=== PATIENT | male | born 1985 | race Caucasian/White ===

== ENCOUNTER 2016-02-27 11:59 | Emergency (ER) | payer OTHER ==
[~2016-02-27 11:59] MED LIST: ALBU17IN2 INH; DEPA250T2 PO; no home meds
[2016-02-27] MEDS ORDERED: ALBUTEROL SULFATE 2.5 MG/0.5 ML INH NEB SOLN As Ordered ONE (13:37)
[2016-02-27] MEDS ORDERED: IPRATROPIUM 0.5MG/ALBUTEROL 2.5MG INH SOL UD 3ML (DUONEB)(J7620) As Ordered ONE (13:37)
[2016-02-27] MEDS ORDERED: predniSONE 20 MG TAB As Ordered ONE (13:38)
[2016-02-27] MEDS ORDERED: KETOROLAC 30 MG/ML VIAL (J1885) As Ordered ONE ×2 (13:38→13:39)
--- NOTE | 2016-02-27 13:49 | REP ---
Clinical: Fever with cough and shortness of breath. Technique: PA and lateral. Comparison: 02/12/2016. Findings: Mediastinum and cardiac silhouette are normal. Lung torres are essentially clear without focal consolidation, effusion, or pneumothorax. Trace atelectasis cannot be excluded. Skeletal structures intact. Impression: No focal consolidation. Cannot exclude trace perihilar atelectasis. Signed by David Horton MD 02/27/2016 01:41 P
--- NOTE | 2016-02-27 14:50 | EDDOCDS ---
Physician Documentation [facility] Name: Roberth Jerez Age: 30 yrs Sex: Male : 1985 Arrival Date: 02/27/2016 Time: 11:59 Bed 13 Private MD: Amy William PA-C Disposition: 02/26 14:37 Critical Care: Critical care not applicable. le Disposition: 02/27/16 14:31 Discharged to Home/Self Care. Impression: Jaw pain - right, Acute bronchitis, Tobacco abuse counseling, Tobacco use. - Condition is Stable. - Discharge Instructions: Acute Bronchitis, Pain Without a Known Cause, Smoking Cessation, Smoking Hazards, Smoking Cessation, Tips For Success. - Prescriptions for codeine- guaifenesin 7.5-225 mg/5 mL Oral liquid - take 5 milliliter by ORAL route every 4 hours as needed; 120 milliliter. Prednisone 20 mg Oral Tablet - take 3 tablet by ORAL route once daily for 5 days; 15 tablet. Combivent Respimat 20- 100 mcg/actuation Inhalation Mist - inhale 1 puff by INHALATION route 4 times per day not to exceed 6 puffs in 24hrs; 1 Inhaler. - Medication Reconciliation, Local Pharmacy Hours, Dental Referral List form. - Follow up: Amy William; When: Call to arrange an appointment; Reason: Recheck today's complaints, Continuance of care. - Problem is new. - Symptoms have improved. - Notes: Keep hydrated Use the dental referral list to see a dentist and have x-rays done to evaluate for decay causing jaw pain Return to the ED for facial swelling/redness, inability to open your mouth more than the width of 2 fingers, difficulty swallowing/drooling, difficulty breathing, fever or any other concerns Historical: - Allergies: no known allergies; - Home Meds: 1. albuterol sulfate 90 mcg/actuation Inhl HFAA 1 puff as needed - PMHx: Asthma; - PSHx: Hernia repair; - Social history: Smoking status: Patient uses tobacco products, light tobacco smoker. No barriers to communication noted, The patient speaks fluent Azeri. - Family history: Not pertinent. - : The pt / caregiver states he / she is not on anticoagulants. Home medication list is obtained from the patient. - Exposure Risk Screening:: None identified. Vital Signs: 12:01 BP 98 / 68; Pulse 78; Resp 22 S; Temp 98.4(O); Pulse Ox 93% on R/A; Weight 78.02 kg / dd6 172 lbs (M); Height 5 ft. 11 in. (180.34 cm) (R); 14:49 BP 107 / 62; Pulse 79; Resp 18; Temp 98.3; Pulse Ox 99% ; Pain 2/10; pml 12:01 Body Mass Index 23.99 (78.02 kg, 180.34 cm) dd6 MDM: 13:32 Albuterol 5 mg Nebulizer once ordered. le 13:32 Albuterol-Ipratropium 3 ml Inhalation once ordered. le 13:32 Call Respiratory ordered. le 13:32 predniSONE 60 mg PO once; administer with food or milk ordered. le 13:32 ketorolac 60 mg IM once ordered. le 13:32 Chest, 2 View (pa\E\lat) Ordered. EDMS 13:33 Call Respiratory complete. deg Administered Medications: 13:41 Drug: Albuterol 5 mg [albuterol sulfate 2.5 mg/0.5 mL solution for nebulization (1 mL)] js11 Route: Nebulizer; 13:41 Drug: Albuterol-Ipratropium 3 ml [ipratropium-albuterol 0.5 mg-3 mg(2.5 mg base)/3 mL js11 nebulization soln (3 mL)] Route: Inhalation; 13:45 Drug: predniSONE 60 mg [prednisone 20 mg tablet (3 tabs)] Route: PO; pml 13:45 Drug: ketorolac 60 mg [ketorolac 30 mg/mL (1 mL) injection solution (2 mL)] Route: IM; pml Site: left vastus lateralis; Signatures: Dispatcher [employer] EDMS Olesya Purdy, Head Baker Unit deg Karen Gannon RN RN mcp Westcott, Lisa, Tamara Manrique RN RN pml Sawyer, Jordan js11 MTDD
--- NOTE | 2016-02-27 14:50 | EDDOCDS ---
Nurse's Notes [facility] Name: Roberth Jerez Age: 30 yrs Sex: Male : 1985 Arrival Date: 02/27/2016 Time: 11:59 Bed 13 Private MD: Amy William PA-C Diagnosis: Jaw pain-right;Acute bronchitis;Tobacco abuse counseling;Tobacco use Presentation: 02/26 12:04 Presenting complaint: Patient states: Right jaw pain, chest congestion for last couple mcp of days. Adult Sepsis Screening: The patient does not have new or worsening altered mentation. Patient has a respiratory rate of greater than or equal to 22 (1 point). Systolic blood pressure is greater than 100. Patient has a qSOFA score of 0- Negative Sepsis Screen. Suicide/Homicide risk assessment- the patient denies having any suicidal and/or homicidal ideations and does not present with any other emotional, behavioral or mental health complaints. Status: Patient is not a student services counselor or dependent. Transition of care: patient was not received from another setting of care. 12:04 Acuity: MARY Level 4 [facility] 12:04 Method Of Arrival: Walkin/Carried/Asstd [facility] Triage Assessment: 12:05 General: Appears uncomfortable, Behavior is cooperative. Pain: Location: mouth Pain mcp currently is 8 out of 10 on a pain scale. HIV screening NA for this visit Offered previously. Neurological: No deficits noted. Respiratory: Onset: The symptoms/episode began/occurred couple of days ago, Airway is patent Respiratory effort is even, unlabored. Derm: Skin is pink, warm & dry. Historical: - Allergies: no known allergies; - Home Meds: 1. albuterol sulfate 90 mcg/actuation Inhl HFAA 1 puff as needed - PMHx: Asthma; - PSHx: Hernia repair; - Social history: Smoking status: Patient uses tobacco products, light tobacco smoker. No barriers to communication noted, The patient speaks fluent Indonesian. - Family history: Not pertinent. - : The pt / caregiver states he / she is not on anticoagulants. Home medication list is obtained from the patient. - Exposure Risk Screening:: None identified. Screenin:42 Screening information is obtained from the patient. Fall risk: No risks identified. pml Assistance ADL's: requires no assistance with activities of daily living. Abuse/DV Screen: The patient / caregiver reports he/she is: not in a situation that causes fear, pain or injury. Nutritional screening: No deficits noted. Advance Directives: There is no active DNR order. home support is adequate. Assessment: 13:42 General: Appears in no apparent distress, comfortable, Behavior is appropriate for age, pml cooperative. Pain: Location: mouth Pain currently is 8 out of 10 on a pain scale. Neurological: Level of Consciousness is awake, alert, Oriented to person, place, time. EENT: Reports nasal congestion. Cardiovascular: Capillary refill < 3 seconds. Respiratory: Airway is patent Respiratory effort is even, unlabored, Breath sounds are diminished Breath sounds with wheezes expiratory bilaterally. Derm: Skin is pink, warm & dry. 14:49 General: Appears in no apparent distress, comfortable, Behavior is appropriate for age, pml cooperative. Pain: Location: mouth Pain currently is 2 out of 10 on a pain scale. Neurological: Level of Consciousness is awake, alert, Oriented to person, place, time. Cardiovascular: Capillary refill < 3 seconds. Respiratory: Airway is patent Respiratory effort is even, unlabored. Derm: Skin is pink, warm & dry. Vital Signs: 12:01 BP 98 / 68; Pulse 78; Resp 22 S; Temp 98.4(O); Pulse Ox 93% on R/A; Weight 78.02 kg dd6 (M); Height 5 ft. 11 in. (180.34 cm) (R); 14:49 BP 107 / 62; Pulse 79; Resp 18; Temp 98.3; Pulse Ox 99% ; Pain 2/10; pml 12:01 Body Mass Index 23.99 (78.02 kg, 180.34 cm) dd6 Vitals: 12:01 Log In Time: February 27, 2016 at 12:00. dd6 ED Course: 12:00 Patient visited by [place] Amanda PCA. dd6 12:00 Patient moved to Waiting dd6 12:01 Amy William is Private Physician. dd6 12:03 Patient moved to Pre RCE dd6 12:05 Triage Initiated mcp 12:06 Patient visited by Karen Gannon RN. mcp 13:12 [facility] 13:12 Patient moved to 13 [facility] 13:22 Patient visited by Lexi Baires FNP. le 13:42 The patient / caregiver is instructed regarding the plan of care and ED course. Patient pml has correct armband on for positive identification. Bed in low position. Call light in reach. Side rails up X2. 13:42 No IV's were initiated during this patient's visit. No procedures done that require pml assistance. 13:43 Patient visited by Tamara Engel RN. pml 14:26 Chest, 2 View (pa\E\lat) Returned. EDMS 14:30 Amy William is Referral Physician. le Administered Medications: 13:41 Drug: Albuterol 5 mg [albuterol sulfate 2.5 mg/0.5 mL solution for nebulization (1 mL)] js11 Route: Nebulizer; 13:41 Drug: Albuterol-Ipratropium 3 ml [ipratropium-albuterol 0.5 mg-3 mg(2.5 mg base)/3 mL js11 nebulization soln (3 mL)] Route: Inhalation; 13:45 Drug: predniSONE 60 mg [prednisone 20 mg tablet (3 tabs)] Route: PO; pml 13:45 Drug: ketorolac 60 mg [ketorolac 30 mg/mL (1 mL) injection solution (2 mL)] Route: IM; pml Site: left vastus lateralis; RT: 13:41 Initial Med Neb Given as ordered Patient was instructed and evaluated on procedure js11 Patient tolerated procedure well without adverse effect. Oxygen is room air. Respiratory: Breath sounds are diminished bilaterally. Breath sounds with wheezes bilaterally. at expiration. 13:47 Respiratory: Breath sounds with wheezes bilaterally. at expiration Breath Sounds js11 increased. Order Results: Radiology Order: Chest, 2 View (pa\E\lat) Test: Chest, 2 View (pa\E\lat) REASON FOR EXAMINATION: fever;Cough;Shortness of Breath; Clinical: Fever with cough and shortness of breath.; ; Technique: PA and lateral.; ; Comparison: 02/12/2016.; ; Findings:; Mediastinum and cardiac silhouette are normal. Lung torres are essentially clear; without focal consolidation, effusion, or pneumothorax. Trace atelectasis cannot; be excluded. Skeletal structures intact.; ; Impression:; No focal consolidation. Cannot exclude trace perihilar atelectasis.; ; ; Signed by; David Horton MD 02/27/2016 01:41 P; Outcome: 14:31 Discharge ordered by Provider. naveed 14:49 Discharge Assessment: Patient awake, alert and oriented x 3. No cognitive and/or pml functional deficits noted. Patient verbalized understanding of disposition instructions. patient administered narcotics - no. The following High Risk Discharge criteria are identified: None. Discharged to home ambulatory. Condition: good Condition: stable. Discharge instructions given to patient, Instructed on discharge instructions, follow up and referral plans. medication usage, no driving heavy equipment, Demonstrated understanding of instructions, medications, Pt was receptive of discharge instructions/ teaching. Prescriptions given X 3. No special radiology studies were completed. Property sent home with patient. 14:50 Patient left the ED. pml Signatures: Dispatcher [employer] EDKaren Mack, RN RN Lexi Beltran, COASTAL AND ESTUARY SPECIALIST COASTAL AND ESTUARY SPECIALIST [place] Roberts, PLATE EMBOSSER PLATE EMBOSSER dd6 Tim Polanco js11 Tamara Engel RN RN pml MTDChalo
--- NOTE | 2016-02-29 15:51 | EDDOCDS ---
Physician Documentation [facility] Name: Roberth Jerez Age: 30 yrs Sex: Male : 1985 Arrival Date: 02/27/2016 Time: 11:59 Bed 13 Private MD: Amy William PA-C Disposition: 02/26 14:37 Critical Care: Critical care not applicable. le Disposition: 02/27/16 14:31 Discharged to Home/Self Care. Impression: Jaw pain - right, Acute bronchitis, Tobacco abuse counseling, Tobacco use. - Condition is Stable. - Discharge Instructions: Acute Bronchitis, Pain Without a Known Cause, Smoking Cessation, Smoking Hazards, Smoking Cessation, Tips For Success. - Prescriptions for codeine- guaifenesin 7.5-225 mg/5 mL Oral liquid - take 5 milliliter by ORAL route every 4 hours as needed; 120 milliliter. Prednisone 20 mg Oral Tablet - take 3 tablet by ORAL route once daily for 5 days; 15 tablet. Combivent Respimat 20- 100 mcg/actuation Inhalation Mist - inhale 1 puff by INHALATION route 4 times per day not to exceed 6 puffs in 24hrs; 1 Inhaler. - Medication Reconciliation, Local Pharmacy Hours, Dental Referral List form. - Follow up: Amy William; When: Call to arrange an appointment; Reason: Recheck today's complaints, Continuance of care. - Problem is new. - Symptoms have improved. - Notes: Keep hydrated Use the dental referral list to see a dentist and have x-rays done to evaluate for decay causing jaw pain Return to the ED for facial swelling/redness, inability to open your mouth more than the width of 2 fingers, difficulty swallowing/drooling, difficulty breathing, fever or any other concerns Historical: - Allergies: no known allergies; - Home Meds: 1. albuterol sulfate 90 mcg/actuation Inhl HFAA 1 puff as needed - PMHx: Asthma; - PSHx: Hernia repair; - Social history: Smoking status: Patient uses tobacco products, light tobacco smoker. No barriers to communication noted, The patient speaks fluent Setswana. - Family history: Not pertinent. - : The pt / caregiver states he / she is not on anticoagulants. Home medication list is obtained from the patient. - Exposure Risk Screening:: None identified. Vital Signs: 12:01 BP 98 / 68; Pulse 78; Resp 22 S; Temp 98.4(O); Pulse Ox 93% on R/A; Weight 78.02 kg / dd6 172 lbs (M); Height 5 ft. 11 in. (180.34 cm) (R); 14:49 BP 107 / 62; Pulse 79; Resp 18; Temp 98.3; Pulse Ox 99% ; Pain 2/10; pml 12:01 Body Mass Index 23.99 (78.02 kg, 180.34 cm) dd6 MDM: 13:32 Albuterol 5 mg Nebulizer once ordered. le 13:32 Albuterol-Ipratropium 3 ml Inhalation once ordered. le 13:32 Call Respiratory ordered. le 13:32 predniSONE 60 mg PO once; administer with food or milk ordered. le 13:32 ketorolac 60 mg IM once ordered. le 13:32 Chest, 2 View (pa\E\lat) Ordered. EDMS 13:33 Call Respiratory complete. deg 14:56 [facility] Payment Agreement was scanned into [employer] and attached to record. jp5 14:56 Financial registration complete. 5 22:39 T-Sheet-- Draft Copy was scanned into [employer] and attached to record. klr Administered Medications: 13:41 Drug: Albuterol 5 mg [albuterol sulfate 2.5 mg/0.5 mL solution for nebulization (1 mL)] js11 Route: Nebulizer; 13:41 Drug: Albuterol-Ipratropium 3 ml [ipratropium-albuterol 0.5 mg-3 mg(2.5 mg base)/3 mL js11 nebulization soln (3 mL)] Route: Inhalation; 13:45 Drug: predniSONE 60 mg [prednisone 20 mg tablet (3 tabs)] Route: PO; pml 13:45 Drug: ketorolac 60 mg [ketorolac 30 mg/mL (1 mL) injection solution (2 mL)] Route: IM; pml Site: left vastus lateralis; Signatures: Dispatcher MedHost EDMS Olesya Purdy, Software Computer Specialist Unit deg Karen Gannon RN RN mcp Westcott, Lisa, FNP FNP le Quay, Paulina, RN RN pml Price, Jennalee 5 Annika Baker Jordan js11 The chart was reviewed and I authenticate all verbal orders and agree with the evaluation and treatment provided.Attachments: 14:56 [facility] Payment Agreement jp5 22:39 T-Sheet-- Draft Copy fabricio Chart Complete MTDD
--- NOTE | 2016-02-29 15:51 | EDDOCDS ---
Nurse's Notes [facility] Name: Roberth Jerez Age: 30 yrs Sex: Male : 1985 Arrival Date: 02/27/2016 Time: 11:59 Bed 13 Private MD: Amy William PA-C Diagnosis: Jaw pain-right;Acute bronchitis;Tobacco abuse counseling;Tobacco use Presentation: 02/26 12:04 Presenting complaint: Patient states: Right jaw pain, chest congestion for last couple mcp of days. Adult Sepsis Screening: The patient does not have new or worsening altered mentation. Patient has a respiratory rate of greater than or equal to 22 (1 point). Systolic blood pressure is greater than 100. Patient has a qSOFA score of 0- Negative Sepsis Screen. Suicide/Homicide risk assessment- the patient denies having any suicidal and/or homicidal ideations and does not present with any other emotional, behavioral or mental health complaints. Status: Patient is not a enterprise services manager or dependent. Transition of care: patient was not received from another setting of care. 12:04 Acuity: MARY Level 4 [facility] 12:04 Method Of Arrival: Walkin/Carried/Asstd [facility] Triage Assessment: 12:05 General: Appears uncomfortable, Behavior is cooperative. Pain: Location: mouth Pain mcp currently is 8 out of 10 on a pain scale. HIV screening NA for this visit Offered previously. Neurological: No deficits noted. Respiratory: Onset: The symptoms/episode began/occurred couple of days ago, Airway is patent Respiratory effort is even, unlabored. Derm: Skin is pink, warm & dry. Historical: - Allergies: no known allergies; - Home Meds: 1. albuterol sulfate 90 mcg/actuation Inhl HFAA 1 puff as needed - PMHx: Asthma; - PSHx: Hernia repair; - Social history: Smoking status: Patient uses tobacco products, light tobacco smoker. No barriers to communication noted, The patient speaks fluent Frisian. - Family history: Not pertinent. - : The pt / caregiver states he / she is not on anticoagulants. Home medication list is obtained from the patient. - Exposure Risk Screening:: None identified. Screenin:42 Screening information is obtained from the patient. Fall risk: No risks identified. pml Assistance ADL's: requires no assistance with activities of daily living. Abuse/DV Screen: The patient / caregiver reports he/she is: not in a situation that causes fear, pain or injury. Nutritional screening: No deficits noted. Advance Directives: There is no active DNR order. home support is adequate. Assessment: 13:42 General: Appears in no apparent distress, comfortable, Behavior is appropriate for age, pml cooperative. Pain: Location: mouth Pain currently is 8 out of 10 on a pain scale. Neurological: Level of Consciousness is awake, alert, Oriented to person, place, time. EENT: Reports nasal congestion. Cardiovascular: Capillary refill < 3 seconds. Respiratory: Airway is patent Respiratory effort is even, unlabored, Breath sounds are diminished Breath sounds with wheezes expiratory bilaterally. Derm: Skin is pink, warm & dry. 14:49 General: Appears in no apparent distress, comfortable, Behavior is appropriate for age, pml cooperative. Pain: Location: mouth Pain currently is 2 out of 10 on a pain scale. Neurological: Level of Consciousness is awake, alert, Oriented to person, place, time. Cardiovascular: Capillary refill < 3 seconds. Respiratory: Airway is patent Respiratory effort is even, unlabored. Derm: Skin is pink, warm & dry. Vital Signs: 12:01 BP 98 / 68; Pulse 78; Resp 22 S; Temp 98.4(O); Pulse Ox 93% on R/A; Weight 78.02 kg dd6 (M); Height 5 ft. 11 in. (180.34 cm) (R); 14:49 BP 107 / 62; Pulse 79; Resp 18; Temp 98.3; Pulse Ox 99% ; Pain 2/10; pml 12:01 Body Mass Index 23.99 (78.02 kg, 180.34 cm) dd6 Vitals: 12:01 Log In Time: February 27, 2016 at 12:00. dd6 ED Course: 12:00 Patient visited by [place] Amanda PCA. dd6 12:00 Patient moved to Waiting dd6 12:01 Amy William is Private Physician. dd6 12:03 Patient moved to Pre RCE dd6 12:05 Triage Initiated mcp 12:06 Patient visited by Karen Gannon RN. mcp 13:12 [facility]aires FNP [facility] le 13:12 Patient moved to 13 [facility] 13:22 Patient visited by Lexi Baires FNP. le 13:42 The patient / caregiver is instructed regarding the plan of care and ED course. Patient pml has correct armband on for positive identification. Bed in low position. Call light in reach. Side rails up X2. 13:42 No IV's were initiated during this patient's visit. No procedures done that require pml assistance. 13:43 Patient visited by Tamara Engel RN. pml 14:26 Chest, 2 View (pa\E\lat) Returned. EDMS 14:30 Amy William is Referral Physician. le 14:56 [facility] Payment Agreement was scanned into [employer] and attached to record. jp5 22:39 T-Sheet-- Draft Copy was scanned into [employer] and attached to record. klr Administered Medications: 13:41 Drug: Albuterol 5 mg [albuterol sulfate 2.5 mg/0.5 mL solution for nebulization (1 mL)] js11 Route: Nebulizer; 13:41 Drug: Albuterol-Ipratropium 3 ml [ipratropium-albuterol 0.5 mg-3 mg(2.5 mg base)/3 mL js11 nebulization soln (3 mL)] Route: Inhalation; 13:45 Drug: predniSONE 60 mg [prednisone 20 mg tablet (3 tabs)] Route: PO; pml 13:45 Drug: ketorolac 60 mg [ketorolac 30 mg/mL (1 mL) injection solution (2 mL)] Route: IM; pml Site: left vastus lateralis; RT: 13:41 Initial Med Neb Given as ordered Patient was instructed and evaluated on procedure js11 Patient tolerated procedure well without adverse effect. Oxygen is room air. Respiratory: Breath sounds are diminished bilaterally. Breath sounds with wheezes bilaterally. at expiration. 13:47 Respiratory: Breath sounds with wheezes bilaterally. at expiration Breath Sounds js11 increased. Order Results: Radiology Order: Chest, 2 View (pa\E\lat) Test: Chest, 2 View (pa\E\lat) REASON FOR EXAMINATION: fever;Cough;Shortness of Breath; Clinical: Fever with cough and shortness of breath.; ; Technique: PA and lateral.; ; Comparison: 02/12/2016.; ; Findings:; Mediastinum and cardiac silhouette are normal. Lung torres are essentially clear; without focal consolidation, effusion, or pneumothorax. Trace atelectasis cannot; be excluded. Skeletal structures intact.; ; Impression:; No focal consolidation. Cannot exclude trace perihilar atelectasis.; ; ; Signed by; David Horton MD 02/27/2016 01:41 P; Outcome: 14:31 Discharge ordered by Provider. le 14:49 Discharge Assessment: Patient awake, alert and oriented x 3. No cognitive and/or pml functional deficits noted. Patient verbalized understanding of disposition instructions. patient administered narcotics - no. The following High Risk Discharge criteria are identified: None. Discharged to home ambulatory. Condition: good Condition: stable. Discharge instructions given to patient, Instructed on discharge instructions, follow up and referral plans. medication usage, no driving heavy equipment, Demonstrated understanding of instructions, medications, Pt was receptive of discharge instructions/ teaching. Prescriptions given X 3. No special radiology studies were completed. Property sent home with patient. 14:50 Patient left the ED. pml Signatures: Dispatcher [employer] EDKaren Mack RN RN Lexi Beltran, AMANDA REHABILITATION SUPERVISOR [place] Roberts, AUXILIARY EQUIPMENT TENDER AUXILIARY EQUIPMENT TENDER dd6 Tim Polanco11 Tamara Engel RN RN pml Price, Jennalee jp5 Annika Baker Chart Complete MTDD
--- NOTE | 2016-02-29 15:51 | EDDOCDS ---
Physician Documentation [facility] Name: Roberth Jerez Age: 30 yrs Sex: Male : 1985 Arrival Date: 02/27/2016 Time: 11:59 Bed 13 Private MD: Amy William PA-C Disposition: 02/26 14:37 Critical Care: Critical care not applicable. le Disposition: 02/27/16 14:31 Discharged to Home/Self Care. Impression: Jaw pain - right, Acute bronchitis, Tobacco abuse counseling, Tobacco use. - Condition is Stable. - Discharge Instructions: Acute Bronchitis, Pain Without a Known Cause, Smoking Cessation, Smoking Hazards, Smoking Cessation, Tips For Success. - Prescriptions for codeine- guaifenesin 7.5-225 mg/5 mL Oral liquid - take 5 milliliter by ORAL route every 4 hours as needed; 120 milliliter. Prednisone 20 mg Oral Tablet - take 3 tablet by ORAL route once daily for 5 days; 15 tablet. Combivent Respimat 20- 100 mcg/actuation Inhalation Mist - inhale 1 puff by INHALATION route 4 times per day not to exceed 6 puffs in 24hrs; 1 Inhaler. - Medication Reconciliation, Local Pharmacy Hours, Dental Referral List form. - Follow up: Amy William; When: Call to arrange an appointment; Reason: Recheck today's complaints, Continuance of care. - Problem is new. - Symptoms have improved. - Notes: Keep hydrated Use the dental referral list to see a dentist and have x-rays done to evaluate for decay causing jaw pain Return to the ED for facial swelling/redness, inability to open your mouth more than the width of 2 fingers, difficulty swallowing/drooling, difficulty breathing, fever or any other concerns Historical: - Allergies: no known allergies; - Home Meds: 1. albuterol sulfate 90 mcg/actuation Inhl HFAA 1 puff as needed - PMHx: Asthma; - PSHx: Hernia repair; - Social history: Smoking status: Patient uses tobacco products, light tobacco smoker. No barriers to communication noted, The patient speaks fluent Korean. - Family history: Not pertinent. - : The pt / caregiver states he / she is not on anticoagulants. Home medication list is obtained from the patient. - Exposure Risk Screening:: None identified. Vital Signs: 12:01 BP 98 / 68; Pulse 78; Resp 22 S; Temp 98.4(O); Pulse Ox 93% on R/A; Weight 78.02 kg / dd6 172 lbs (M); Height 5 ft. 11 in. (180.34 cm) (R); 14:49 BP 107 / 62; Pulse 79; Resp 18; Temp 98.3; Pulse Ox 99% ; Pain 2/10; pml 12:01 Body Mass Index 23.99 (78.02 kg, 180.34 cm) dd6 MDM: 13:32 Albuterol 5 mg Nebulizer once ordered. le 13:32 Albuterol-Ipratropium 3 ml Inhalation once ordered. le 13:32 Call Respiratory ordered. le 13:32 predniSONE 60 mg PO once; administer with food or milk ordered. le 13:32 ketorolac 60 mg IM once ordered. le 13:32 Chest, 2 View (pa\E\lat) Ordered. EDMS 13:33 Call Respiratory complete. deg 14:56 [facility] was scanned into [employer] and attached to record. jp5 14:56 Financial registration complete. 5 22:39 T-Sheet-- Draft Copy was scanned into [employer] and attached to record. klr Administered Medications: 13:41 Drug: Albuterol 5 mg [albuterol sulfate 2.5 mg/0.5 mL solution for nebulization (1 mL)] js11 Route: Nebulizer; 13:41 Drug: Albuterol-Ipratropium 3 ml [ipratropium-albuterol 0.5 mg-3 mg(2.5 mg base)/3 mL js11 nebulization soln (3 mL)] Route: Inhalation; 13:45 Drug: predniSONE 60 mg [prednisone 20 mg tablet (3 tabs)] Route: PO; pml 13:45 Drug: ketorolac 60 mg [ketorolac 30 mg/mL (1 mL) injection solution (2 mL)] Route: IM; pml Site: left vastus lateralis; Signatures: Dispatcher [employer] EDMS Olesya Purdy, Parts Cataloguer Unit deg Karen Gannon RN RN mcp Westcott, Lisa, FNP FNP le Quay, Paulina, RN RN pml Price, Jennalee 5 Annika Baker Jordan js11 The chart was reviewed and I authenticate all verbal orders and agree with the evaluation and treatment provided.Attachments: 14:56 [facility] Payment Agreement jp5 22:39 T-Sheet-- Draft Copy fabricio Chart Complete MTDD
== END 2016-02-27 14:50 | disposition home or self-care (01) ==
LOC: M ED 11:59
DX: K02.9 Dental caries, unspecified (principal); R68.84 Jaw pain; J20.9 Acute bronchitis, unspecified; F17.210 Nicotine dependence, cigarettes, uncomplicated; J45.909 Unspecified asthma, uncomplicated; Z79.51 Long term (current) use of inhaled steroids
CPT/HCPCS: 71020; 94640; 96372; 99283; J1885

== ENCOUNTER 2016-03-13 17:20 | Emergency (ER) | payer OTHER ==
[2016-03-13] MEDS ORDERED: LIDOCAINE 2% MDV 20 ML VIAL As Ordered ONE (18:29)
[2016-03-13] MEDS ORDERED: BUPIVACAINE HCL 0.25% 10 ML VIAL As Ordered ONE (18:29)
--- NOTE | 2016-03-13 19:09 | EDDOCDS ---
Physician Documentation [facility] Name: Roberth Jerez Age: 30 yrs Sex: Male : 1985 Arrival Date: 03/13/2016 Time: 17:20 Bed Triage 2 Private MD: Soraya Romero N. Disposition: 03/13/16 18:51 Discharged to Home/Self Care. Impression: Dental caries. - Condition is Stable. - Prescriptions for Vicodin 5/325mg Take one tablet PO 4 x day for 3 days, prn for pain. MDD 4. Number twelve. - take 1 tablet by ORAL route 4 times per day; 12 tablet. Augmentin 875- 125 mg Oral Tablet - take 1 tablet by ORAL route every 12 hours for 10 days; 20 tablet. - Medication Reconciliation, Local Pharmacy Hours form. - Follow up: Your, Dentist; When: Tomorrow; Reason: Recheck today's complaints. Follow up: Emergency Department; When: As soon as possible; Reason: Fever > 102F, Worsening of conditions. - Problem is new. - Symptoms have worsened. Historical: - Allergies: no known allergies; - Home Meds: 1. albuterol sulfate 90 mcg/actuation Inhl HFAA 1 puff as needed - PMHx: Asthma; - PSHx: Hernia repair- Left inguinal; Hernia repair- Right inguinal; - Social history: Smoking status: Chewing Tobacco No barriers to communication noted, The patient speaks fluent Bengali. - Family history: Not pertinent. - : The pt / caregiver states he / she is not on anticoagulants. Home medication list is obtained from the patient. - Exposure Risk Screening:: None identified. Vital Signs: 03/13 17:22 BP 111 / 66; Pulse 88; Resp 18 S; Temp 96.4(O); Pulse Ox 97% on R/A; Weight 78.02 kg / gr2 172 lbs (R); Height 5 ft. 11 in. (180.34 cm) (R); Pain 8/10; 19:05 BP 117 / 78; Pulse 84; Resp 18; Temp 98; Pulse Ox 98% ; Pain 0/10; ms18 17:22 Body Mass Index 23.99 (78.02 kg, 180.34 cm) gr2 MDM: 18:22 Lidocaine 20 mg/mL (2 %) 1 mg Infiltration once; At IV or IO insertion site ordered. jk8 18:22 Bupivacaine (PF) 0.25 % 3 ml Infiltration once ordered. jk8 Administered Medications: 18:30 Drug: Lidocaine 1 mg [lidocaine 20 mg/mL (2 %) injection solution (0.05 mL)] {Note: to kcs be administered by PA.} Route: Infiltration; 18:30 Drug: Bupivacaine (PF) 3 ml [bupivacaine (PF) 0.25 % (2.5 mg/mL) injection solution (3 kcs mL)] {Note: to be administered by PA.} Route: Infiltration; Signatures: Yaritza Kumari, RN RN dls Micaela Carver RN RN ms18 Hussein Bolaños PA-C PA-C Leslie Potter RN kcs MTDD
--- NOTE | 2016-03-13 19:09 | EDDOCDS ---
Nurse's Notes [facility] Name: Roberth Jerez Age: 30 yrs Sex: Male : 1985 Arrival Date: 03/13/2016 Time: 17:20 Bed Triage 2 Private MD: Soraya Romero N. Diagnosis: Dental caries Presentation: 03/13 17:25 Presenting complaint: Patient states: Pt presents with right sided dental pain started dls one week ago much worse today. Adult Sepsis Screening: The patient does not have new or worsening altered mentation. Patient's respiratory rate is less than 22. Systolic blood pressure is greater than 100. Patient has a qSOFA score of 0- Negative Sepsis Screen. Suicide/Homicide risk assessment- the patient denies having any suicidal and/or homicidal ideations and does not present with any other emotional, behavioral or mental health complaints. Status: Patient is not a social services specialist or dependent. Transition of care: patient was not received from another setting of care. 17:25 Acuity: MARY Level 5 dls 17:25 Method Of Arrival: Walkin/Carried/Asstd dls Triage Assessment: 17:27 General: Appears slender, uncomfortable, well developed, Behavior is cooperative. Pain: dls Pain currently is 10 out of 10 on a pain scale. HIV screening NA for this visit Offered previously. EENT: Reports dental pain. Historical: - Allergies: no known allergies; - Home Meds: 1. albuterol sulfate 90 mcg/actuation Inhl HFAA 1 puff as needed - PMHx: Asthma; - PSHx: Hernia repair- Left inguinal; Hernia repair- Right inguinal; - Social history: Smoking status: Chewing Tobacco No barriers to communication noted, The patient speaks fluent Romanian. - Family history: Not pertinent. - : The pt / caregiver states he / she is not on anticoagulants. Home medication list is obtained from the patient. - Exposure Risk Screening:: None identified. Screenin:07 Screening information is obtained from the patient. Fall risk: No risks identified. ms18 Assistance ADL's: requires no assistance with activities of daily living. Abuse/DV Screen: The patient / caregiver reports he/she is: not in a situation that causes fear, pain or injury. Nutritional screening: No deficits noted. Advance Directives: There is no living will. home support is adequate. Assessment: 19:07 General: Appears in no apparent distress, comfortable, Behavior is appropriate for age, ms18 cooperative, pleasant. Pain: Denies pain. Neurological: Level of Consciousness is awake, alert, obeys commands, Oriented to person, place, time. EENT: Poor dentition noted. Respiratory: No deficits noted. Derm: Skin is pink, warm & dry. Vital Signs: 17:22 BP 111 / 66; Pulse 88; Resp 18 S; Temp 96.4(O); Pulse Ox 97% on R/A; Weight 78.02 kg gr2 (R); Height 5 ft. 11 in. (180.34 cm) (R); Pain 8/10; 19:05 BP 117 / 78; Pulse 84; Resp 18; Temp 98; Pulse Ox 98% ; Pain 0/10; ms18 17:22 Body Mass Index 23.99 (78.02 kg, 180.34 cm) gr2 Vitals: 17:22 Log In Time: March 13, 2016 at 17:22. gr2 ED Course: 17:21 Patient visited by Giles Rios. gr2 17:21 Patient moved to Waiting gr2 17:22 Soraya Romero is Private Physician. gr2 17:23 Patient visited by Giles Rios. gr2 17:23 Patient moved to Pre RCE gr2 17:26 Triage Initiated dls 18:08 Patient moved to Triage 2 kcs 18:11 Hussein Bolaños PA-C is PHCP. jk8 18:11 Antonio Islas MD is Attending Physician. jk8 18:11 Patient visited by Hussein Bolaños PA-C. jk8 18:48 Your, Dentist is Referral Physician. jk8 19:07 The patient / caregiver is instructed regarding the plan of care and ED course. Patient ms18 has correct armband on for positive identification. Property sent home with patient. :Personal belongings accompany Pt. 19:07 No IV's were initiated during this patient's visit. No procedures done that require ms18 assistance. Administered Medications: 18:30 Drug: Lidocaine 1 mg [lidocaine 20 mg/mL (2 %) injection solution (0.05 mL)] {Note: to kcs be administered by PA.} Route: Infiltration; 18:30 Drug: Bupivacaine (PF) 3 ml [bupivacaine (PF) 0.25 % (2.5 mg/mL) injection solution (3 kcs mL)] {Note: to be administered by PA.} Route: Infiltration; Order Results: There are currently no results for this order. Outcome: 18:51 Discharge ordered by Provider. jk8 19:07 Discharge Assessment: Patient awake, alert and oriented x 3. No cognitive and/or ms18 functional deficits noted. Patient verbalized understanding of disposition instructions. patient administered narcotics - no. The following High Risk Discharge criteria are identified: None. Discharged to home ambulatory. Condition: good Condition: stable Condition: improved. Discharge instructions given to patient, Instructed on discharge instructions, follow up and referral plans. medication usage, Demonstrated understanding of instructions, medications, Pt was receptive of discharge instructions/ teaching. Prescriptions given X 2. No special radiology studies were completed. 19:08 Patient left the ED. ms18 Signatures: Leslie Garnett, RN RN Yaritza Frederick RN RN dls Giles Rios gr2 Micaela Carver RN RN ms18 Hussein Bolaños PA-C PAAlyssaC jk8 Corrections: (The following items were deleted from the chart) 19:07 19:05 BP 117 / 78; Pulse 84bpm; Resp 96bpm; Pulse Ox 98%; Pain 0/10; ms18 ms18 MTDD
--- NOTE | 2016-03-15 20:09 | EDDOCDS ---
Nurse's Notes [facility] Name: Roberth Jerez Age: 30 yrs Sex: Male : 1985 Arrival Date: 03/13/2016 Time: 17:20 Bed Triage 2 Private MD: Soraya Romero N. Diagnosis: Dental caries Presentation: 03/13 17:25 Presenting complaint: Patient states: Pt presents with right sided dental pain started dls one week ago much worse today. Adult Sepsis Screening: The patient does not have new or worsening altered mentation. Patient's respiratory rate is less than 22. Systolic blood pressure is greater than 100. Patient has a qSOFA score of 0- Negative Sepsis Screen. Suicide/Homicide risk assessment- the patient denies having any suicidal and/or homicidal ideations and does not present with any other emotional, behavioral or mental health complaints. Status: Patient is not a coordinator of health services or dependent. Transition of care: patient was not received from another setting of care. 17:25 Acuity: MARY Level 5 dls 17:25 Method Of Arrival: Walkin/Carried/Asstd dls Triage Assessment: 17:27 General: Appears slender, uncomfortable, well developed, Behavior is cooperative. Pain: dls Pain currently is 10 out of 10 on a pain scale. HIV screening NA for this visit Offered previously. EENT: Reports dental pain. Historical: - Allergies: no known allergies; - Home Meds: 1. albuterol sulfate 90 mcg/actuation Inhl HFAA 1 puff as needed - PMHx: Asthma; - PSHx: Hernia repair- Left inguinal; Hernia repair- Right inguinal; - Social history: Smoking status: Chewing Tobacco No barriers to communication noted, The patient speaks fluent Lithuanian. - Family history: Not pertinent. - : The pt / caregiver states he / she is not on anticoagulants. Home medication list is obtained from the patient. - Exposure Risk Screening:: None identified. Screenin:07 Screening information is obtained from the patient. Fall risk: No risks identified. ms18 Assistance ADL's: requires no assistance with activities of daily living. Abuse/DV Screen: The patient / caregiver reports he/she is: not in a situation that causes fear, pain or injury. Nutritional screening: No deficits noted. Advance Directives: There is no living will. home support is adequate. Assessment: 19:07 General: Appears in no apparent distress, comfortable, Behavior is appropriate for age, ms18 cooperative, pleasant. Pain: Denies pain. Neurological: Level of Consciousness is awake, alert, obeys commands, Oriented to person, place, time. EENT: Poor dentition noted. Respiratory: No deficits noted. Derm: Skin is pink, warm & dry. Vital Signs: 17:22 BP 111 / 66; Pulse 88; Resp 18 S; Temp 96.4(O); Pulse Ox 97% on R/A; Weight 78.02 kg gr2 (R); Height 5 ft. 11 in. (180.34 cm) (R); Pain 8/10; 19:05 BP 117 / 78; Pulse 84; Resp 18; Temp 98; Pulse Ox 98% ; Pain 0/10; ms18 17:22 Body Mass Index 23.99 (78.02 kg, 180.34 cm) gr2 Vitals: 17:22 Log In Time: March 13, 2016 at 17:22. gr2 ED Course: 17:21 Patient visited by Giles Rios. gr2 17:21 Patient moved to Waiting gr2 17:22 Soraya Romero is Private Physician. gr2 17:23 Patient visited by Giles Rios. gr2 17:23 Patient moved to Pre RCE gr2 17:26 Triage Initiated dls 18:08 Patient moved to Triage 2 kcs 18:11 Hussein Bolaños PA-C is PHCP. jk8 18:11 Antonio Islas MD is Attending Physician. jk8 18:11 Patient visited by Hussein Bolaños PA-C. jk8 18:48 Your, Dentist is Referral Physician. jk8 19:07 The patient / caregiver is instructed regarding the plan of care and ED course. Patient ms18 has correct armband on for positive identification. Property sent home with patient. :Personal belongings accompany Pt. 19:07 No IV's were initiated during this patient's visit. No procedures done that require ms18 assistance. 22:06 T-Sheet-- Draft Copy was scanned into [email or web address] and attached to record. klr Administered Medications: 18:30 Drug: Lidocaine 1 mg [lidocaine 20 mg/mL (2 %) injection solution (0.05 mL)] {Note: to kcs be administered by PA.} Route: Infiltration; 18:30 Drug: Bupivacaine (PF) 3 ml [bupivacaine (PF) 0.25 % (2.5 mg/mL) injection solution (3 kcs mL)] {Note: to be administered by PA.} Route: Infiltration; Order Results: There are currently no results for this order. Outcome: 18:51 Discharge ordered by Provider. jk8 19:07 Discharge Assessment: Patient awake, alert and oriented x 3. No cognitive and/or ms18 functional deficits noted. Patient verbalized understanding of disposition instructions. patient administered narcotics - no. The following High Risk Discharge criteria are identified: None. Discharged to home ambulatory. Condition: good Condition: stable Condition: improved. Discharge instructions given to patient, Instructed on discharge instructions, follow up and referral plans. medication usage, Demonstrated understanding of instructions, medications, Pt was receptive of discharge instructions/ teaching. Prescriptions given X 2. No special radiology studies were completed. 19:08 Patient left the ED. ms18 Signatures: Leslie Garnett RN MORALES kcs Yaritza Kumari RN RN [facility] Giles Rios gr2 Micaela Carver RN RN ms18 Hussein Bolaños PA-C PAAnnika Flores Corrections: (The following items were deleted from the chart) 19:07 19:05 BP 117 / 78; Pulse 84bpm; Resp 96bpm; Pulse Ox 98%; Pain 0/10; ms18 ms18 Chart Complete MTDD
--- NOTE | 2016-03-15 20:09 | EDDOCDS ---
Physician Documentation [facility] Name: Roberth Jerez Age: 30 yrs Sex: Male : 1985 Arrival Date: 03/13/2016 Time: 17:20 Bed Triage 2 Private MD: Soraya Romero N. Disposition: 03/13/16 18:51 Discharged to Home/Self Care. Impression: Dental caries. - Condition is Stable. - Prescriptions for Vicodin 5/325mg Take one tablet PO 4 x day for 3 days, prn for pain. MDD 4. Number twelve. - take 1 tablet by ORAL route 4 times per day; 12 tablet. Augmentin 875- 125 mg Oral Tablet - take 1 tablet by ORAL route every 12 hours for 10 days; 20 tablet. - Medication Reconciliation, Local Pharmacy Hours form. - Follow up: Your, Dentist; When: Tomorrow; Reason: Recheck today's complaints. Follow up: Emergency Department; When: As soon as possible; Reason: Fever > 102F, Worsening of conditions. - Problem is new. - Symptoms have worsened. Historical: - Allergies: no known allergies; - Home Meds: 1. albuterol sulfate 90 mcg/actuation Inhl HFAA 1 puff as needed - PMHx: Asthma; - PSHx: Hernia repair- Left inguinal; Hernia repair- Right inguinal; - Social history: Smoking status: Chewing Tobacco No barriers to communication noted, The patient speaks fluent Kyrgyz. - Family history: Not pertinent. - : The pt / caregiver states he / she is not on anticoagulants. Home medication list is obtained from the patient. - Exposure Risk Screening:: None identified. Vital Signs: 03/13 17:22 BP 111 / 66; Pulse 88; Resp 18 S; Temp 96.4(O); Pulse Ox 97% on R/A; Weight 78.02 kg / gr2 172 lbs (R); Height 5 ft. 11 in. (180.34 cm) (R); Pain 8/10; 19:05 BP 117 / 78; Pulse 84; Resp 18; Temp 98; Pulse Ox 98% ; Pain 0/10; ms18 17:22 Body Mass Index 23.99 (78.02 kg, 180.34 cm) gr2 MDM: 18:22 Lidocaine 20 mg/mL (2 %) 1 mg Infiltration once; At IV or IO insertion site ordered. jk8 18:22 Bupivacaine (PF) 0.25 % 3 ml Infiltration once ordered. jk8 22:06 T-Sheet-- Draft Copy was scanned into [facility] and attached to record. klr Administered Medications: 18:30 Drug: Lidocaine 1 mg [lidocaine 20 mg/mL (2 %) injection solution (0.05 mL)] {Note: to kcs be administered by PA.} Route: Infiltration; 18:30 Drug: Bupivacaine (PF) 3 ml [bupivacaine (PF) 0.25 % (2.5 mg/mL) injection solution (3 kcs mL)] {Note: to be administered by PA.} Route: Infiltration; Signatures: Yaritza Kumari RN RN dls Micaela Carver RN RN ms18 Hussein Bolaños PA-C PA-C jk8 Redder, Kathie klr Sleeman, Kacey RN kcs The chart was reviewed and I authenticate all verbal orders and agree with the evaluation and treatment provided.Attachments: 22:06 T-Sheet-- Draft Copy klr Chart Complete MTDD
== END 2016-03-13 19:08 | disposition home or self-care (01) ==
LOC: M ED 17:20
DX: K04.7 Periapical abscess without sinus (principal); K08.9 Disorder of teeth and supporting structures, unspecified; J45.909 Unspecified asthma, uncomplicated; F17.228 Nicotine dependence, chewing tobacco, with other nicotine-induced disorders

== ENCOUNTER 2016-03-17 09:03 | Emergency (ER) | payer OTHER ==
[2016-03-17] MEDS ORDERED: ONDANSETRON 4 MG ORAL DISINTEGRATING TAB (S0181) As Ordered ONE (09:34)
--- NOTE | 2016-03-17 09:42 | EDDOCDS ---
Nurse's Notes [facility] Name: Roberth Jerez Age: 30 yrs Sex: Male : 1985 Arrival Date: 03/17/2016 Time: 09:03 Bed TR7 [facility] Diagnosis: Vomiting;Diarrhea, unspecified Presentation: 03/17 09:07 Presenting complaint: Patient states: vomiting began this morning with diarrhea, jjr followed by upper abd pain. Adult Sepsis Screening: The patient does not have new or worsening altered mentation. Patient's respiratory rate is less than 22. Systolic blood pressure is greater than 100. Patient has a qSOFA score of 0- Negative Sepsis Screen. Suicide/Homicide risk assessment- the patient denies having any suicidal and/or homicidal ideations and does not present with any other emotional, behavioral or mental health complaints. Status: Patient is not a toll service observer or dependent. Transition of care: patient was not received from another setting of care. 09:07 Acuity: MARY Level 4 jjr 09:07 Method Of Arrival: Walkin/Carried/Asstd jjr Triage Assessment: 09:09 General: Appears in no apparent distress. Pain: Location: right upper quadrant and left jjr upper quadrant. HIV screening NA for this visit Offered previously. GI: Reports diarrhea, nausea, vomiting, intolerance of food, intolerance of fluids. Historical: - Allergies: no known allergies; - Home Meds: 1. albuterol sulfate 90 mcg/actuation Inhl HFAA 1 puff as needed 2. Augmentin 875-125 mg Oral tab 1 tab every 12 hours 3. Vicodin 5/325 Oral tab prn - PMHx: Asthma; - PSHx: Hernia repair- Left inguinal; Hernia repair- Right inguinal; - Social history: Smoking status: Patient uses tobacco products, current every day smoker. No barriers to communication noted, The patient speaks fluent Micronesian. - Family history: Not pertinent. - : The pt / caregiver states he / she is not on anticoagulants. Home medication list is obtained from the patient. - Exposure Risk Screening:: None identified. Screenin:39 Screening information is obtained from the patient. Fall risk: No risks identified. srm 09:40 Assistance ADL's: requires no assistance with activities of daily living. Abuse/DV srm Screen: The patient / caregiver reports he/she is: not in a situation that causes fear, pain or injury. Nutritional screening: No deficits noted. Advance Directives: There is. home support is adequate. Assessment: 09:38 General: Appears in no apparent distress, Behavior is appropriate for age, cooperative. srm Skin warm and dry. Moves all extremities. Bilateral breath sounds clear. Respirations unlabored. No apparent distress. The patient / caregiver is instructed regarding the plan of care and ED course. Vital Signs: 09:04 BP 107 / 74; Pulse 87; Resp 16; Temp 96.6(O); Pulse Ox 99% on R/A; Weight 74.84 kg (R); elp Height 5 ft. 10 in. (177.80 cm) (R); Pain 0/10; 09:04 Body Mass Index 23.67 (74.84 kg, 177.80 cm) elp Vitals: 09:04 Log In Time: March 17, 2016 at 09:00. elp ED Course: 09:03 Patient visited by Kiley Snell PCA. elp 09:03 Patient moved to Waiting elp 09:04 [facility] is Private Physician. elp 09:05 Patient moved to Pre RCE elp 09:08 Triage Initiated jjr 09:10 Patient moved to Triage 3 jjr 09:20 [facility] btw 09:20 Antonio Islas MD is Attending Physician. btw 09:20 Patient visited by Riky López PA. btw 09:32 [facility] is Referral Physician. btw 09:37 Patient moved to TR7 srm 09:40 The patient / caregiver is instructed regarding the plan of care and ED course. Patient srm has correct armband on for positive identification. 09:40 No IV's were initiated during this patient's visit. No procedures done that require srm assistance. Administered Medications: 09:38 Drug: Ondansetron ODT 4 mg [ondansetron 4 mg disintegrating tablet (1 tabs)] Route: PO; srm Order Results: There are currently no results for this order. Outcome: 09:33 Discharge ordered by Provider. btw 09:40 Discharge Assessment: Patient awake, alert and oriented x 3. No cognitive and/or srm functional deficits noted. Patient verbalized understanding of disposition instructions. patient administered narcotics - no. The following High Risk Discharge criteria are identified: None. Condition: stable. Discharge instructions given to patient, Instructed on discharge instructions, follow up and referral plans. medication usage, diet, Demonstrated understanding of instructions, medications, Pt was receptive of discharge instructions/ teaching. Prescriptions given X 1, Work note provided to patient. No special radiology studies were completed. Property sent home with patient. 09:41 Patient left the ED. srm Signatures: Skylar Diaz RN RN Loree Wolff RN RN jjr Wolfenden, Brandon, Kiley Becker, ALVIN PICK REMOVER elp MTDD
--- NOTE | 2016-03-17 09:42 | EDDOCDS ---
Physician Documentation [facility] Name: Roberth Jerez Age: 30 yrs Sex: Male : 1985 Arrival Date: 03/17/2016 Time: 09:03 Bed TR7 Private MD: [facility] Disposition: 03/17/16 09:33 Discharged to Home/Self Care. Impression: Vomiting, Diarrhea, unspecified. - Condition is Stable. - Discharge Instructions: Viral Gastroenteritis, Vopx-ip-Rukv. - Prescriptions for ZOFRAN ODT 4 mg - dissolve 1 tablet by ORAL route 4 times per day As needed do not chew, do not swallow whole; 10 tablet. - Medication Reconciliation, Local Pharmacy Hours, Work Release Form - 1 day form. - Follow up: [facility]; When: Call to arrange an appointment; Reason: Further diagnostic work-up, Recheck today's complaints, Continuance of care. - Problem is new. - Symptoms are unchanged. Historical: - Allergies: no known allergies; - Home Meds: 1. albuterol sulfate 90 mcg/actuation Inhl HFAA 1 puff as needed 2. Augmentin 875-125 mg Oral tab 1 tab every 12 hours 3. Vicodin 5/325 Oral tab prn - PMHx: Asthma; - PSHx: Hernia repair- Left inguinal; Hernia repair- Right inguinal; - Social history: Smoking status: Patient uses tobacco products, current every day smoker. No barriers to communication noted, The patient speaks fluent Luxembourgish. - Family history: Not pertinent. - : The pt / caregiver states he / she is not on anticoagulants. Home medication list is obtained from the patient. - Exposure Risk Screening:: None identified. Vital Signs: 03/17 09:04 BP 107 / 74; Pulse 87; Resp 16; Temp 96.6(O); Pulse Ox 99% on R/A; Weight 74.84 kg / elp 164.99 lbs (R); Height 5 ft. 10 in. (177.80 cm) (R); Pain 0/10; 09:04 Body Mass Index 23.67 (74.84 kg, 177.80 cm) elp MDM: 09:31 Ondansetron ODT Oral Disintegrating Tablet 4 mg PO once ordered. btw 09:38 Financial registration complete. lg Administered Medications: 09:38 Drug: Ondansetron ODT 4 mg [ondansetron 4 mg disintegrating tablet (1 tabs)] Route: PO; srm Signatures: Skylar Diaz, Angie Mcgraw RN, Reg Reg lg Raymond, Jessica, RN RN jjr Wolfenden, Brandon, PA PA btw MTDD
--- NOTE | 2016-03-19 10:41 | EDDOCDS ---
Physician Documentation [facility] Name: Roberth Jerez Age: 30 yrs Sex: Male : 1985 Arrival Date: 03/17/2016 Time: 09:03 Bed TR7 Private MD: [facility] Disposition: 03/17/16 09:33 Discharged to Home/Self Care. Impression: Vomiting, Diarrhea, unspecified. - Condition is Stable. - Discharge Instructions: Viral Gastroenteritis, Kwaf-ca-Niwt. - Prescriptions for ZOFRAN ODT 4 mg - dissolve 1 tablet by ORAL route 4 times per day As needed do not chew, do not swallow whole; 10 tablet. - Medication Reconciliation, Local Pharmacy Hours, Work Release Form - 1 day form. - Follow up: [facility]; When: Call to arrange an appointment; Reason: Further diagnostic work-up, Recheck today's complaints, Continuance of care. - Problem is new. - Symptoms are unchanged. Historical: - Allergies: no known allergies; - Home Meds: 1. albuterol sulfate 90 mcg/actuation Inhl HFAA 1 puff as needed 2. Augmentin 875-125 mg Oral tab 1 tab every 12 hours 3. Vicodin 5/325 Oral tab prn - PMHx: Asthma; - PSHx: Hernia repair- Left inguinal; Hernia repair- Right inguinal; - Social history: Smoking status: Patient uses tobacco products, current every day smoker. No barriers to communication noted, The patient speaks fluent Slovak. - Family history: Not pertinent. - : The pt / caregiver states he / she is not on anticoagulants. Home medication list is obtained from the patient. - Exposure Risk Screening:: None identified. Vital Signs: 03/17 09:04 BP 107 / 74; Pulse 87; Resp 16; Temp 96.6(O); Pulse Ox 99% on R/A; Weight 74.84 kg / elp 164.99 lbs (R); Height 5 ft. 10 in. (177.80 cm) (R); Pain 0/10; 09:04 Body Mass Index 23.67 (74.84 kg, 177.80 cm) elp MDM: 09:31 Ondansetron ODT Oral Disintegrating Tablet 4 mg PO once ordered. btw 09:38 Financial registration complete. lg 09:42 [facility] Payment Agreement was scanned into [employer] and attached to record. mm15 15:23 T-Sheet-- Draft Copy was scanned into WebAction and attached to record. gb Administered Medications: 09:38 Drug: Ondansetron ODT 4 mg [ondansetron 4 mg disintegrating tablet (1 tabs)] Route: PO; srm Signatures: Skylar Diaz RN RN srm Lisbeth Alcantar, Reg Reg gb Angie Slaughter, Reg Reg lg Loree Rios RN RN jjr Wolfenden, Brandon, PA PA btw McGrath, Marlynn mm15 The chart was reviewed and I authenticate all verbal orders and agree with the evaluation and treatment provided.Attachments: :42 [facility] Payment Agreement mm15 15:23 T-Sheet-- Draft Copy gb Chart Complete MTDD
--- NOTE | 2016-03-19 10:41 | EDDOCDS ---
Physician Documentation [facility] Name: Roberth Jerez Age: 30 yrs Sex: Male : 1985 Arrival Date: 03/17/2016 Time: 09:03 Bed TR7 Private MD: [facility], [facility] Disposition: 03/17/16 09:33 Discharged to Home/Self Care. Impression: Vomiting, Diarrhea, unspecified. - Condition is Stable. - Discharge Instructions: Viral Gastroenteritis, [id number]. - Prescriptions for ZOFRAN ODT 4 mg - dissolve 1 tablet by ORAL route 4 times per day As needed do not chew, do not swallow whole; 10 tablet. - Medication Reconciliation, Local Pharmacy Hours, Work Release Form - 1 day form. - Follow up: [facility]; When: Call to arrange an appointment; Reason: Further diagnostic work-up, Recheck today's complaints, Continuance of care. - Problem is new. - Symptoms are unchanged. Historical: - Allergies: no known allergies; - Home Meds: 1. albuterol sulfate 90 mcg/actuation Inhl HFAA 1 puff as needed 2. Augmentin 875-125 mg Oral tab 1 tab every 12 hours 3. Vicodin 5/325 Oral tab prn - PMHx: Asthma; - PSHx: Hernia repair- Left inguinal; Hernia repair- Right inguinal; - Social history: Smoking status: Patient uses tobacco products, current every day smoker. No barriers to communication noted, The patient speaks fluent Spanish. - Family history: Not pertinent. - : The pt / caregiver states he / she is not on anticoagulants. Home medication list is obtained from the patient. - Exposure Risk Screening:: None identified. Vital Signs: 03/17 09:04 BP 107 / 74; Pulse 87; Resp 16; Temp 96.6(O); Pulse Ox 99% on R/A; Weight 74.84 kg / elp 164.99 lbs (R); Height 5 ft. 10 in. (177.80 cm) (R); Pain 0/10; 09:04 Body Mass Index 23.67 (74.84 kg, 177.80 cm) elp MDM: 09:31 Ondansetron ODT Oral Disintegrating Tablet 4 mg PO once ordered. btw 09:38 Financial registration complete. lg 09:42 [facility] Payment Agreement was scanned into [employer]Class and attached to record. mm15 15:23 T-Sheet-- Draft Copy was scanned into [employer]Class and attached to record. gb Administered Medications: 09:38 Drug: Ondansetron ODT 4 mg [ondansetron 4 mg disintegrating tablet (1 tabs)] Route: PO; srm Signatures: Skylar Diaz RN RN srm Lisbeth Alcantar, Reg Reg gb Angie Slaughter, Reg Reg lg Loree Rios RN RN jjr Wolfenden, Brandon, PA PA btw McGrath, Marlynn mm15 The chart was reviewed and I authenticate all verbal orders and agree with the evaluation and treatment provided.Attachments: :42 [facility] Payment Agreement mm15 15:23 T-Sheet-- Draft Copy gb Chart Complete MTDD
--- NOTE | 2016-03-19 10:41 | EDDOCDS ---
Nurse's Notes [facility] Name: Roberth Jerez Age: 30 yrs Sex: Male : 1985 Arrival Date: 03/17/2016 Time: 09:03 Bed TR7 Private MD: [facility] Diagnosis: Vomiting;Diarrhea, unspecified Presentation: 03/17 09:07 Presenting complaint: Patient states: vomiting began this morning with diarrhea, jjr followed by upper abd pain. Adult Sepsis Screening: The patient does not have new or worsening altered mentation. Patient's respiratory rate is less than 22. Systolic blood pressure is greater than 100. Patient has a qSOFA score of 0- Negative Sepsis Screen. Suicide/Homicide risk assessment- the patient denies having any suicidal and/or homicidal ideations and does not present with any other emotional, behavioral or mental health complaints. Status: Patient is not a facility service manager or dependent. Transition of care: patient was not received from another setting of care. 09:07 Acuity: MARY Level 4 jjr 09:07 Method Of Arrival: Walkin/Carried/Asstd jjr Triage Assessment: 09:09 General: Appears in no apparent distress. Pain: Location: right upper quadrant and left jjr upper quadrant. HIV screening NA for this visit Offered previously. GI: Reports diarrhea, nausea, vomiting, intolerance of food, intolerance of fluids. Historical: - Allergies: no known allergies; - Home Meds: 1. albuterol sulfate 90 mcg/actuation Inhl HFAA 1 puff as needed 2. Augmentin 875-125 mg Oral tab 1 tab every 12 hours 3. Vicodin 5/325 Oral tab prn - PMHx: Asthma; - PSHx: Hernia repair- Left inguinal; Hernia repair- Right inguinal; - Social history: Smoking status: Patient uses tobacco products, current every day smoker. No barriers to communication noted, The patient speaks fluent Khmer. - Family history: Not pertinent. - : The pt / caregiver states he / she is not on anticoagulants. Home medication list is obtained from the patient. - Exposure Risk Screening:: None identified. Screenin:39 Screening information is obtained from the patient. Fall risk: No risks identified. srm 09:40 Assistance ADL's: requires no assistance with activities of daily living. Abuse/DV srm Screen: The patient / caregiver reports he/she is: not in a situation that causes fear, pain or injury. Nutritional screening: No deficits noted. Advance Directives: There is. home support is adequate. Assessment: 09:38 General: Appears in no apparent distress, Behavior is appropriate for age, cooperative. srm Skin warm and dry. Moves all extremities. Bilateral breath sounds clear. Respirations unlabored. No apparent distress. The patient / caregiver is instructed regarding the plan of care and ED course. Vital Signs: 09:04 BP 107 / 74; Pulse 87; Resp 16; Temp 96.6(O); Pulse Ox 99% on R/A; Weight 74.84 kg (R); elp Height 5 ft. 10 in. (177.80 cm) (R); Pain 0/10; 09:04 Body Mass Index 23.67 (74.84 kg, 177.80 cm) elp Vitals: 09:04 Log In Time: March 17, 2016 at 09:00. elp ED Course: 09:03 Patient visited by Kiley Snell PCA. elp 09:03 Patient moved to Waiting elp 09:04 [facility] is Private Physician. elp 09:05 Patient moved to Pre RCE elp 09:08 Triage Initiated jjr 09:10 Patient moved to Triage 3 jjr 09:20 [facility] btw 09:20 Antonio Islas MD is Attending Physician. btw 09:20 Patient visited by Riky López PA. btw 09:32 [facility] is Referral Physician. btw 09:37 Patient moved to TR7 srm 09:40 The patient / caregiver is instructed regarding the plan of care and ED course. Patient srm has correct armband on for positive identification. 09:40 No IV's were initiated during this patient's visit. No procedures done that require srm assistance. 09:42 [facility] [place] was scanned into [employer] and attached to record. mm15 15:23 T-Sheet-- Draft Copy was scanned into [employer] and attached to record. gb Administered Medications: 09:38 Drug: Ondansetron ODT 4 mg [ondansetron 4 mg disintegrating tablet (1 tabs)] Route: PO; srm Order Results: There are currently no results for this order. Outcome: 09:33 Discharge ordered by Provider. btw 09:40 Discharge Assessment: Patient awake, alert and oriented x 3. No cognitive and/or srm functional deficits noted. Patient verbalized understanding of disposition instructions. patient administered narcotics - no. The following High Risk Discharge criteria are identified: None. Condition: stable. Discharge instructions given to patient, Instructed on discharge instructions, follow up and referral plans. medication usage, diet, Demonstrated understanding of instructions, medications, Pt was receptive of discharge instructions/ teaching. Prescriptions given X 1, Work note provided to patient. No special radiology studies were completed. Property sent home with patient. 09:41 Patient left the ED. srm Signatures: Skylar Diaz, RN RN Lisbeth Saenz, Loree Moore RN RN Riky Montiel PA PA btw Nancy Serna mm15 Patchen, Kiley, HAND INSERTER OPERATOR HAND INSERTER OPERATOR elp Chart Complete MTDChalo
== END 2016-03-17 09:41 | disposition home or self-care (01) ==
LOC: M ED 09:03
DX: R11.2 Nausea with vomiting, unspecified (principal); R19.7 Diarrhea, unspecified; J45.909 Unspecified asthma, uncomplicated; F17.210 Nicotine dependence, cigarettes, uncomplicated; Z79.899 Other long term (current) drug therapy

== ENCOUNTER 2016-03-30 18:58 | Emergency (ER) | payer OTHER ==
--- NOTE | 2016-03-30 20:27 | EDDOCDS ---
Physician Documentation [facility] Name: Roberth Jerez Age: 30 yrs Sex: Male : 1985 Arrival Date: 03/30/2016 Time: 18:58 Bed TR5 Private MD: [facility] Disposition: 03/30/16 20:17 Discharged to Home/Self Care. Impression: Candidal balanitis. - Condition is Stable. - Discharge Instructions: Cutaneous Candidiasis. - Prescriptions for Diflucan 150 mg Oral Tablet - take 1 tablet by ORAL route one time for 1 day; 1 tablet. Lotrimin AF 1 % Topical Cream - apply to affected area 1 application by TOPICAL route 2 times per day; 15 gram. - Medication Reconciliation, Local Pharmacy Hours form. - Follow up: [facility]; When: 4 - 5 days; Reason: Recheck today's complaints, Continuance of care. - Problem is an ongoing problem. - Symptoms are unchanged. Historical: - Allergies: no known allergies; - Home Meds: 1. albuterol sulfate 90 mcg/actuation Inhl HFAA 1 puff as needed - PMHx: Asthma; - PSHx: Hernia repair- Left inguinal; Hernia repair- Right inguinal; - Social history: Smoking status: Patient uses tobacco products, light tobacco smoker. No barriers to communication noted, The patient speaks fluent Paraguayan. - Family history: Not pertinent. - : The pt / caregiver states he / she is not on anticoagulants. Home medication list is obtained from the patient. - Exposure Risk Screening:: None identified. Vital Signs: 03/30 19:04 BP 120 / 71; Pulse 79; Resp 16; Temp 96.3(T); Pulse Ox 95% on R/A; Weight 77.11 kg / lr2 170 lbs (R); Height 5 ft. 10 in. (177.80 cm) (R); Pain 3/10; 20:21 BP 125 / 65; Pulse 87; Resp 18; Temp 97.8(TE); Pulse Ox 93% on R/A; Pain 0/10; mdr 19:04 Body Mass Index 24.39 (77.11 kg, 177.80 cm) lr2 MDM: 20:01 Urinalysis Ordered. EDMS 20:01 Urine Culture Ordered. EDMS 20:18 Urinalysis Reviewed. ke 20:18 Chlamydia & GC Amplification Ordered. EDMS Signatures: Dispatcher MedHost EDMS Colin Pappas, MOTOR EQUIPMENT CAPTAIN MOTOR EQUIPMENT CAPTAIN Betzaida Dowell,RN RN ck1 Anabelle Feldman,RN RN rs3 MTDD
--- NOTE | 2016-03-30 20:27 | EDDOCDS ---
Nurse's Notes [facility] Name: Roberth Jerez Age: 30 yrs Sex: Male : 1985 Arrival Date: 03/30/2016 Time: 18:58 Bed TR5 Private MD: [facility] Diagnosis: Candidal balanitis Presentation: 03/30 19:11 Presenting complaint: Patient states: burning/urgency/pain with urination since rs3 yesterday. penile swelling and itching since yesterday. Onset: The symptoms/episode began/occurred gradually. This patient has not experienced a previous allergic reaction. Anaphylaxis evaluation, the patient reports or I have noted the following symptoms which indicate a significant risk of anaphylaxis: no signs or symptoms of anaphylaxis were noted. Adult Sepsis Screening: The patient does not have new or worsening altered mentation. Patient's respiratory rate is less than 22. Systolic blood pressure is greater than 100. Patient has a qSOFA score of 0- Negative Sepsis Screen. Suicide/Homicide risk assessment- the patient denies having any suicidal and/or homicidal ideations and does not present with any other emotional, behavioral or mental health complaints. Status: Patient is not a track service person or dependent. Transition of care: patient was not received from another setting of care. 19:11 Acuity: MARY Level 4 rs3 19:11 Method Of Arrival: Walkin/Carried/Asstd rs3 Triage Assessment: 19:14 General: Appears in no apparent distress. Pain: Location: pelvis. Pt Declines HIV rs3 testing. Respiratory: Reports no respiratory complaints. Historical: - Allergies: no known allergies; - Home Meds: 1. albuterol sulfate 90 mcg/actuation Inhl HFAA 1 puff as needed - PMHx: Asthma; - PSHx: Hernia repair- Left inguinal; Hernia repair- Right inguinal; - Social history: Smoking status: Patient uses tobacco products, light tobacco smoker. No barriers to communication noted, The patient speaks fluent Slovenian. - Family history: Not pertinent. - : The pt / caregiver states he / she is not on anticoagulants. Home medication list is obtained from the patient. - Exposure Risk Screening:: None identified. Screenin:20 Screening information is obtained from the patient. Fall risk: No risks identified. ck1 Assistance ADL's: requires no assistance with activities of daily living. Abuse/DV Screen: The patient / caregiver reports he/she is: not in a situation that causes fear, pain or injury. Nutritional screening: No deficits noted. Advance Directives: Currently, there is no health care proxy. home support is adequate. Assessment: 20:25 General: Appears in no apparent distress, comfortable, Behavior is appropriate for age, ck1 cooperative. Pain: Denies pain. Neurological: Level of Consciousness is awake, alert, obeys commands, Oriented to person, place, time. Respiratory: Respiratory effort is even, unlabored, Respiratory pattern is regular, symmetrical, Breath sounds are clear bilaterally. Derm: Rash noted that is red, on groin. Musculoskeletal: Circulation, motion, and sensation intact Range of motion intact in all extremities. Vital Signs: 19:04 BP 120 / 71; Pulse 79; Resp 16; Temp 96.3(T); Pulse Ox 95% on R/A; Weight 77.11 kg (R); lr2 Height 5 ft. 10 in. (177.80 cm) (R); Pain 3/10; 20:21 BP 125 / 65; Pulse 87; Resp 18; Temp 97.8(TE); Pulse Ox 93% on R/A; Pain 0/10; mdr 19:04 Body Mass Index 24.39 (77.11 kg, 177.80 cm) lr2 Vitals: 19:04 Log In Time: March 30, 2016 at 18:58. lr2 ED Course: 19:02 Patient visited by Soledad Holt. lr2 19:02 [facility] is Private Physician. lr2 19:02 Patient moved to Waiting lr2 19:02 Patient moved to Pre RCE lr2 19:14 Triage Initiated rs3 19:46 Patient moved to Triage 1 mdr 19:57 Colin Pappas FNP is [facility]. ke 19:57 Patient visited by Colin Pappas FNP. ke 19:57 Patient visited by Colin Pappas FNP. ke 20:05 Urine Culture Sent. mdr 20:05 Urinalysis Sent. mdr 20:17 [facility] is Referral Physician. ke 20:20 The patient / caregiver is instructed regarding the plan of care and ED course. ck1 20:20 Chlamydia & GC Amplification Sent. ck1 20:20 No IV's were initiated during this patient's visit. No procedures done that require ck1 assistance. 20:26 Patient visited by Jony Culver PCA. mdr 20:26 Patient moved to [facility] mdr Order Results: Lab Order: Urinalysis; SPEC'M 03/30/16 20:03 Test: APPEARANCE, URINE; Value: CLEAR; Range: CLEAR; Status: F Test: COLOR, URINE; Value: YELLOW; Range: YELLOW; Status: F Test: PH,URINE; Value: 5.0; Range: 5.0-9.0; Units: UNITS; Status: F Test: SPECIFIC GRAVITY URINE AUTO; Value: 1.017; Range: 1.002-1.035; Status: F Test: PROTEIN, URINE AUTO; Value: NEGATIVE; Range: NEGATIVE; Units: mg/dL; Status: F Test: GLUCOSE, URINE (UA) AUTO; Value: NEGATIVE; Range: NEGATIVE; Units: mg/dL; Status: F Test: KETONE, URINE AUTO; Value: NEGATIVE; Range: NEGATIVE; Units: mg/dL; Status: F Test: UROBILINOGEN, URINE AUTO; Value: 0.2; Range: 0.0-2.0; Units: mg/dL; Status: F Test: BILIRUBIN, URINE AUTO; Value: NEGATIVE; Range: NEGATIVE; Status: F Test: NITRITE, URINE AUTO; Value: NEGATIVE; Range: NEGATIVE; Status: F Test: LEUKOCYTE ESTERASE, URINE AUTO; Value: NEGATIVE; Range: NEGATIVE; Status: F Test: BLOOD, URINE BLOOD; Value: NEGATIVE; Range: NEGATIVE; Status: F Test: WBC, URINE AUTO; Value: 1; Range: 0-3; Units: /HPF; Status: F Test: RBC, URINE AUTO; Value: 0; Range: 0-3; Units: /HPF; Status: F Test: BACTERIA, URINE AUTO; Value: NEGATIVE; Range: NEGATIVE; Status: F Test: SQUAMOUS EPITHELIAL CELL UR AU; Value: 0; Range: 0-6; Units: /HPF; Status: F Test: MUCUS, URINE; Value: SMALL; Range: NEGATIVE; Status: F Test: HYALINE CAST, URINE AUTO; Value: 0; Range: 0-1; Units: /LPF; Status: F Outcome: 20:17 Discharge ordered by Provider. 20:20 Discharge Assessment: Patient awake, alert and oriented x 3. No cognitive and/or ck1 functional deficits noted. Patient verbalized understanding of disposition instructions. patient administered narcotics - no. The following High Risk Discharge criteria are identified: None. Discharged to home ambulatory. Condition: stable. No special radiology studies were completed. Property :Personal belongings accompany Pt. 20:25 Discharge instructions given to patient, Instructed on discharge instructions, follow ck1 up and referral plans. medication usage, Demonstrated understanding of instructions, medications, Pt was receptive of discharge instructions/ teaching. Prescriptions given X 2. 20:26 Patient left the ED. ck1 Signatures: Colin Pappas, Betzaida BourgeoisRN RN ck1 Anabelle Feldman RN RN rs3 Jony Culver, ALVIN CONTROLS PROJECT ENGINEER Soledad Christine2 MTDD
--- NOTE | 2016-04-01 21:27 | EDDOCDS ---
Physician Documentation [facility] Name: Roberth Jerez Age: 30 yrs Sex: Male : 1985 Arrival Date: 03/30/2016 Time: 18:58 Bed TR5 Private MD: [facility] Disposition: 03/30/16 20:17 Discharged to Home/Self Care. Impression: Candidal balanitis. - Condition is Stable. - Discharge Instructions: Cutaneous Candidiasis. - Prescriptions for Diflucan 150 mg Oral Tablet - take 1 tablet by ORAL route one time for 1 day; 1 tablet. Lotrimin AF 1 % Topical Cream - apply to affected area 1 application by TOPICAL route 2 times per day; 15 gram. - Medication Reconciliation, Local Pharmacy Hours form. - Follow up: [facility]; When: 4 - 5 days; Reason: Recheck today's complaints, Continuance of care. - Problem is an ongoing problem. - Symptoms are unchanged. Historical: - Allergies: no known allergies; - Home Meds: 1. albuterol sulfate 90 mcg/actuation Inhl HFAA 1 puff as needed - PMHx: Asthma; - PSHx: Hernia repair- Left inguinal; Hernia repair- Right inguinal; - Social history: Smoking status: Patient uses tobacco products, light tobacco smoker. No barriers to communication noted, The patient speaks fluent Finnish. - Family history: Not pertinent. - : The pt / caregiver states he / she is not on anticoagulants. Home medication list is obtained from the patient. - Exposure Risk Screening:: None identified. Vital Signs: 03/30 19:04 BP 120 / 71; Pulse 79; Resp 16; Temp 96.3(T); Pulse Ox 95% on R/A; Weight 77.11 kg / lr2 170 lbs (R); Height 5 ft. 10 in. (177.80 cm) (R); Pain 3/10; 20:21 BP 125 / 65; Pulse 87; Resp 18; Temp 97.8(TE); Pulse Ox 93% on R/A; Pain 0/10; mdr 19:04 Body Mass Index 24.39 (77.11 kg, 177.80 cm) lr2 MDM: 20:01 Urinalysis Ordered. EDMS 20:01 Urine Culture Ordered. EDMS 20:18 Urinalysis Reviewed. ke 20:18 Chlamydia & GC Amplification Ordered. EDMS 21:08 [facility] Payment Agreement was scanned into [employer] and attached to record. [email or web address] : Financial registration complete. ks16 03/31 12:29 T-Sheet-- Draft Copy was scanned into [employer] and attached to record. gb Signatures: Dispatcher [employer] EDCO Lisbeth Alcantar, Reg Reg gb Colin Pappas, SALES FLOOR TEAM MEMBER SALES FLOOR TEAM MEMBER Betzaida DowellRN RN ck1 Anabelle Feldman RN RN rs3 Mell Montes, Reg Reg ks16 The chart was reviewed and I authenticate all verbal orders and agree with the evaluation and treatment provided.Attachments: 03/30 20:08 [facility] Payment Agreement [email or web address] 03/31 12:29 T-Sheet-- Draft Copy gb Chart Complete MTDD
--- NOTE | 2016-04-01 21:27 | EDDOCDS ---
Nurse's Notes [facility] Name: Roberth Jerez Age: 30 yrs Sex: Male : 1985 Arrival Date: 03/30/2016 Time: 18:58 Bed TR5 Private MD: EDNA ACUNA, CLINIC Diagnosis: Candidal balanitis Presentation: 03/30 19:11 Presenting complaint: Patient states: burning/urgency/pain with urination since rs3 yesterday. penile swelling and itching since yesterday. Onset: The symptoms/episode began/occurred gradually. This patient has not experienced a previous allergic reaction. Anaphylaxis evaluation, the patient reports or I have noted the following symptoms which indicate a significant risk of anaphylaxis: no signs or symptoms of anaphylaxis were noted. Adult Sepsis Screening: The patient does not have new or worsening altered mentation. Patient's respiratory rate is less than 22. Systolic blood pressure is greater than 100. Patient has a qSOFA score of 0- Negative Sepsis Screen. Suicide/Homicide risk assessment- the patient denies having any suicidal and/or homicidal ideations and does not present with any other emotional, behavioral or mental health complaints. Status: Patient is not a visitor services specialist or dependent. Transition of care: patient was not received from another setting of care. 19:11 Acuity: MARY Level 4 rs3 19:11 Method Of Arrival: Walkin/Carried/Asstd rs3 Triage Assessment: 19:14 General: Appears in no apparent distress. Pain: Location: pelvis. Pt Declines HIV rs3 testing. Respiratory: Reports no respiratory complaints. Historical: - Allergies: no known allergies; - Home Meds: 1. albuterol sulfate 90 mcg/actuation Inhl HFAA 1 puff as needed - PMHx: Asthma; - PSHx: Hernia repair- Left inguinal; Hernia repair- Right inguinal; - Social history: Smoking status: Patient uses tobacco products, light tobacco smoker. No barriers to communication noted, The patient speaks fluent Maltese. - Family history: Not pertinent. - : The pt / caregiver states he / she is not on anticoagulants. Home medication list is obtained from the patient. - Exposure Risk Screening:: None identified. Screenin:20 Screening information is obtained from the patient. Fall risk: No risks identified. ck1 Assistance ADL's: requires no assistance with activities of daily living. Abuse/DV Screen: The patient / caregiver reports he/she is: not in a situation that causes fear, pain or injury. Nutritional screening: No deficits noted. Advance Directives: Currently, there is no health care proxy. home support is adequate. Assessment: 20:25 General: Appears in no apparent distress, comfortable, Behavior is appropriate for age, ck1 cooperative. Pain: Denies pain. Neurological: Level of Consciousness is awake, alert, obeys commands, Oriented to person, place, time. Respiratory: Respiratory effort is even, unlabored, Respiratory pattern is regular, symmetrical, Breath sounds are clear bilaterally. Derm: Rash noted that is red, on groin. Musculoskeletal: Circulation, motion, and sensation intact Range of motion intact in all extremities. Vital Signs: 19:04 BP 120 / 71; Pulse 79; Resp 16; Temp 96.3(T); Pulse Ox 95% on R/A; Weight 77.11 kg (R); lr2 Height 5 ft. 10 in. (177.80 cm) (R); Pain 3/10; 20:21 BP 125 / 65; Pulse 87; Resp 18; Temp 97.8(TE); Pulse Ox 93% on R/A; Pain 0/10; mdr 19:04 Body Mass Index 24.39 (77.11 kg, 177.80 cm) lr2 Vitals: 19:04 Log In Time: March 30, 2016 at 18:58. lr2 ED Course: 19:02 Patient visited by Soledad Holt. lr2 19:02 RUST is Private Physician. lr2 19:02 Patient moved to Waiting lr2 19:02 Patient moved to Pre RCE lr2 19:14 Triage Initiated rs3 19:46 Patient moved to Triage 1 mdr 19:57 Colin Pappas FNP is [facility]. ke 19:57 Patient visited by Colin Pappas FNP. ke 19:57 Patient visited by Colin Pappas FNP. ke 20:05 Urine Culture Sent. mdr 20:05 Urinalysis Sent. mdr 20:17 RUST is Referral Physician. ke 20:20 The patient / caregiver is instructed regarding the plan of care and ED course. ck1 20:20 Chlamydia & GC Amplification Sent. ck1 20:20 No IV's were initiated during this patient's visit. No procedures done that require ck1 assistance. 20:26 Patient visited by Jony Culver PCA. mdr 20:26 Patient moved to [facility] mdr 21:08 [facility] Payment Agreement was scanned into [employer] and attached to record. [email or web address] 03/31 12:29 T-Sheet-- Draft Copy was scanned into [employer] and attached to record. gb Order Results: Lab Order: Urinalysis; SPEC'M 03/30/16 20:03 Test: APPEARANCE, URINE; Value: CLEAR; Range: CLEAR; Status: F Test: COLOR, URINE; Value: YELLOW; Range: YELLOW; Status: F Test: PH,URINE; Value: 5.0; Range: 5.0-9.0; Units: UNITS; Status: F Test: SPECIFIC GRAVITY URINE AUTO; Value: 1.017; Range: 1.002-1.035; Status: F Test: PROTEIN, URINE AUTO; Value: NEGATIVE; Range: NEGATIVE; Units: mg/dL; Status: F Test: GLUCOSE, URINE (UA) AUTO; Value: NEGATIVE; Range: NEGATIVE; Units: mg/dL; Status: F Test: KETONE, URINE AUTO; Value: NEGATIVE; Range: NEGATIVE; Units: mg/dL; Status: F Test: UROBILINOGEN, URINE AUTO; Value: 0.2; Range: 0.0-2.0; Units: mg/dL; Status: F Test: BILIRUBIN, URINE AUTO; Value: NEGATIVE; Range: NEGATIVE; Status: F Test: NITRITE, URINE AUTO; Value: NEGATIVE; Range: NEGATIVE; Status: F Test: LEUKOCYTE ESTERASE, URINE AUTO; Value: NEGATIVE; Range: NEGATIVE; Status: F Test: BLOOD, URINE BLOOD; Value: NEGATIVE; Range: NEGATIVE; Status: F Test: WBC, URINE AUTO; Value: 1; Range: 0-3; Units: /HPF; Status: F Test: RBC, URINE AUTO; Value: 0; Range: 0-3; Units: /HPF; Status: F Test: BACTERIA, URINE AUTO; Value: NEGATIVE; Range: NEGATIVE; Status: F Test: SQUAMOUS EPITHELIAL CELL UR AU; Value: 0; Range: 0-6; Units: /HPF; Status: F Test: MUCUS, URINE; Value: SMALL; Range: NEGATIVE; Status: F Test: HYALINE CAST, URINE AUTO; Value: 0; Range: 0-1; Units: /LPF; Status: F Lab Order: Urine Culture; SPEC'M 03/30/16 20:03 Test: URINE CULTURE; Value: <EXTERNAL COMMENT eCWMed> FULL REPORT IN LAB NOTES (eCW and Medent).; Status: F Test: URINE CULTURE; Value: URINE CULTURE RESULT NO GROWTH; Status: F Lab Order: Chlamydia & GC Amplification; SPEC'M 03/30/16 20:03 Test: CHLAMYDIA DNA AMPLIFICATION; Value: NEGATIVE; Range: NEGATIVE; Status: F Test: GC DNA AMPLIFICATION; Value: NEGATIVE; Range: NEGATIVE; Status: F Outcome: 03/30 20:17 Discharge ordered by Provider. ke 20:20 Discharge Assessment: Patient awake, alert and oriented x 3. No cognitive and/or ck1 functional deficits noted. Patient verbalized understanding of disposition instructions. patient administered narcotics - no. The following High Risk Discharge criteria are identified: None. Discharged to home ambulatory. Condition: stable. No special radiology studies were completed. Property :Personal belongings accompany Pt. 20:25 Discharge instructions given to patient, Instructed on discharge instructions, follow ck1 up and referral plans. medication usage, Demonstrated understanding of instructions, medications, Pt was receptive of discharge instructions/ teaching. Prescriptions given X 2. 20:26 Patient left the ED. ck1 Signatures: Lisbeth Alcantar, Reg Reg gb Colin Pappas, DIRECTOR WORKERS COMPENSATION DIRECTOR WORKERS COMPENSATION Betzaida Dowell,RN RN ck1 Anabelle Feldman RN RN rs3 Jony Culver, ELECTROPHYSIOLOGY TECH ELECTROPHYSIOLOGY TECH Mell Smith, Reg Reg ks16 Soledad Holt lr2 Chart Complete MTDD
--- NOTE | 2016-04-01 21:27 | EDDOCDS ---
Physician Documentation [facility] Name: Roberth Jerez Age: 30 yrs Sex: Male : 1985 Arrival Date: 03/30/2016 Time: 18:58 Bed TR5 Private MD: EDNA ACUNA, CLINIC Disposition: 03/30/16 20:17 Discharged to Home/Self Care. Impression: Candidal balanitis. - Condition is Stable. - Discharge Instructions: Cutaneous Candidiasis. - Prescriptions for Diflucan 150 mg Oral Tablet - take 1 tablet by ORAL route one time for 1 day; 1 tablet. Lotrimin AF 1 % Topical Cream - apply to affected area 1 application by TOPICAL route 2 times per day; 15 gram. - Medication Reconciliation, Local Pharmacy Hours form. - Follow up: [facility]; When: 4 - 5 days; Reason: Recheck today's complaints, Continuance of care. - Problem is an ongoing problem. - Symptoms are unchanged. Historical: - Allergies: no known allergies; - Home Meds: 1. albuterol sulfate 90 mcg/actuation Inhl HFAA 1 puff as needed - PMHx: Asthma; - PSHx: Hernia repair- Left inguinal; Hernia repair- Right inguinal; - Social history: Smoking status: Patient uses tobacco products, light tobacco smoker. No barriers to communication noted, The patient speaks fluent Iranian. - Family history: Not pertinent. - : The pt / caregiver states he / she is not on anticoagulants. Home medication list is obtained from the patient. - Exposure Risk Screening:: None identified. Vital Signs: 03/30 19:04 BP 120 / 71; Pulse 79; Resp 16; Temp 96.3(T); Pulse Ox 95% on R/A; Weight 77.11 kg / lr2 170 lbs (R); Height 5 ft. 10 in. (177.80 cm) (R); Pain 3/10; 20:21 BP 125 / 65; Pulse 87; Resp 18; Temp 97.8(TE); Pulse Ox 93% on R/A; Pain 0/10; mdr 19:04 Body Mass Index 24.39 (77.11 kg, 177.80 cm) lr2 MDM: 20:01 Urinalysis Ordered. EDMS 20:01 Urine Culture Ordered. EDMS 20:18 Urinalysis Reviewed. ke 20:18 Chlamydia & GC Amplification Ordered. EDMS 21:08 [facility] [place] Agreement was scanned into [employer] and attached to record. [email or web address] : Financial registration complete. [email or web address] 03/31 12:29 T-Sheet-- Draft Copy was scanned into [employer] and attached to record. gb Signatures: Dispatcher [employer] EDMO Lisbeth Alcantar, Reg Reg gb Colin Pappas, RURAL MAIL CARRIER RURAL MAIL CARRIER Betzaida DowellRN RN ck1 Anabelle Feldman RN RN rs3 Mell Montes, Reg Reg ks16 The chart was reviewed and I authenticate all verbal orders and agree with the evaluation and treatment provided.Attachments: 03/30 20:08 [facility] [place] Agreement [email or web address] 03/31 12:29 T-Sheet-- Draft Copy gb Chart Complete MTDD
== END 2016-03-30 20:26 | disposition home or self-care (01) ==
LOC: M ED 18:58
DX: B37.42 Candidal balanitis (principal); J45.909 Unspecified asthma, uncomplicated; F17.210 Nicotine dependence, cigarettes, uncomplicated; Z79.899 Other long term (current) drug therapy

== ENCOUNTER 2016-05-04 10:44 | Emergency (ER) | payer OTHER ==
[~2016-05-04] VITALS: Ht 177.8 cm; Wt 73.5 kg
[2016-05-04 10:46] VITALS: BP 113/60
== END 2016-05-04 12:03 | disposition left against medical advice (07) ==
LOC: M ED 11:59
DX: J45.909 Unspecified asthma, uncomplicated (principal); F32.9 Major depressive disorder, single episode, unspecified; Z53.29 Procedure and treatment not carried out because of patient's decision for other reasons

== ENCOUNTER 2016-10-25 04:27 | Emergency (ER) | payer OTHER ==
[~2016-10-25] VITALS: Ht 180.3 cm; Wt 75.0 kg
[2016-10-25] MEDS ORDERED: IPRATROPIUM 0.5MG/ALBUTEROL 2.5MG INH SOL UD 3ML (DUONEB)(J7620) As Ordered ONE (05:04)
[2016-10-25] MEDS: IPRATROPIUM 0.5MG/ALBUTEROL 2.5MG INH SOL UD 3ML (DUONEB)(J7620) NEB PRN ×3 (05:08→05:17)
[2016-10-25 05:20] LABS: BASO % 0.5 % (0.0-1.0); EOS # 0.6 K/mm3 (0.0-0.50); EOS % 7.4 % (0.0-3.0); LARGE UNSTAINED CELL # 0.1 K/mm3 (0.0-0.4); LARGE UNSTAINED CELL % 1.7 % (0.0-4.0); LYMPH # 2.5 K/mm3 (1.5-6.5); LYMPH % 28.6 % (24.0-44.0); MEAN CORPUSCULAR HEMOGLOBIN 33.8 pg (27.0-33.0); MEAN CORPUSCULAR HGB CONC 35.6 g/dl (32.0-36.5); MEAN CORPUSCULAR VOLUME 94.9 fl (80.0-96.0); MONO # 0.5 K/mm3 (0.0-0.8); NEUTROPHILS # 4.5 K/mm3 (1.8-7.7); NEUTROPHILS % 55.8 % (36.0-66.0); PLATELET COUNT, AUTOMATED 235 k/mm3 (150-450); RED CELL DISTRIBUTION WIDTH 12.3 % (11.5-14.5); WHITE BLOOD COUNT 8.1 K/mm3 (4.0-10.0)
[2016-10-25 05:45] LABS: ANION GAP 8 MEQ/L (8-16); BLOOD UREA NITROGEN 14 MG/DL (7-18); CALCIUM LEVEL 9.5 MG/DL (8.5-10.1); CARBON DIOXIDE LEVEL 27 MEQ/L (21-32); CHLORIDE LEVEL 107 MEQ/L (98-107); CREATININE FOR GFR 0.82 MG/DL (0.70-1.30); GLOMERULAR FILTRATION RATE > 60.0 (>60); GLUCOSE, FASTING 92 MG/DL (70-105); POTASSIUM SERUM 4.6 MEQ/L (3.5-5.1); SODIUM LEVEL 142 MEQ/L (136-145)
[2016-10-25] MEDS ORDERED: ALBU17IN2 INH (06:24)
[2016-10-25] MEDS ORDERED: PRED20TA PO (06:24)
[2016-10-25] MEDS ORDERED: predniSONE 20 MG TAB PO ONE (06:30)
[2016-10-25 06:35] VITALS: BP 132/68
--- NOTE | 2016-10-25 07:44 | REP ---
Clinical: Shortness of breath . Comparison: 02/27/2016 . Technique: PA and lateral. Findings: The mediastinum and cardiac silhouette are normal. The lung torres are clear and without acute consolidation, effusion, or pneumothorax. The skeletal structures are intact and normal. Impression: 1. No acute cardiopulmonary process. Signed by David Horton MD 10/25/2016 07:35 A
[2016-12-09] MEDS ORDERED: ELIQ5TAB PO (09:23)
== END 2016-10-25 06:36 | disposition home or self-care (01) ==
LOC: M ED 04:27
DX: J45.901 Unspecified asthma with (acute) exacerbation (principal); F17.200 Nicotine dependence, unspecified, uncomplicated

== ENCOUNTER 2016-12-04 06:52 | Emergency (ER) | payer OTHER ==
[~2016-12-04] VITALS: Ht 177.8 cm; Wt 75.0 kg
[~2016-12-04 06:52] MED LIST changes: +PRED20TA PO
[2016-12-04 08:04] LABS: MEAN CORPUSCULAR HEMOGLOBIN 33.8 pg (27.0-33.0); MEAN CORPUSCULAR HGB CONC 35.8 g/dl (32.0-36.5); MEAN CORPUSCULAR VOLUME 94.4 fl (80.0-96.0); PLATELET COUNT, AUTOMATED 203 10^3/uL (150-450); RED CELL DISTRIBUTION WIDTH 12.2 % (11.5-14.5); WHITE BLOOD COUNT 9.1 10^3/uL (4.0-10.0)
[2016-12-04 08:11] LABS: INR 0.93
[2016-12-04 08:20] LABS: ANION GAP 5 MEQ/L (8-16); BLOOD UREA NITROGEN 16 MG/DL (7-18); CALCIUM LEVEL 8.5 MG/DL (8.5-10.1); CARBON DIOXIDE LEVEL 30 MEQ/L (21-32); CHLORIDE LEVEL 107 MEQ/L (98-107); CREATININE FOR GFR 0.89 MG/DL (0.70-1.30); GLOMERULAR FILTRATION RATE > 60.0 (>60); GLUCOSE, FASTING 79 MG/DL (70-105); POTASSIUM SERUM 4.1 MEQ/L (3.5-5.1); SODIUM LEVEL 142 MEQ/L (136-145)
--- NOTE | 2016-12-04 08:35 | REP ---
Duplex extremity venous ultrasound: Left lower extremity. History: Left calf pain and swelling and erythema. Question DVT. Findings: The deep veins are anechoic and fully compressible from the groin to the popliteal fossa in the left lower extremity. Color flow imaging is homogeneous. Spectral Doppler interrogation demonstrates intact respiratory variation in flow and normal manual augmentation of flow. There is no evidence of deep vein thrombosis. Impression: Negative left lower extremity duplex venous ultrasound. No evidence of deep vein thrombosis. Signed by Brandon Lugo MD 12/04/2016 08:26 A
[2016-12-04] MEDS ORDERED: NORCO, ANEXSIA 5/325MG TABLET (HYDROcodone/ACETAMINOPHEN) PO ONE (09:15)
[2016-12-04] MEDS ORDERED: NORCOTAB PO (09:16)
[2016-12-04 09:25] VITALS: BP 118/75
[2016-12-09] MEDS ORDERED: ELIQ5TAB PO (09:23)
== END 2016-12-04 09:28 | disposition home or self-care (01) ==
LOC: M ED 06:52
DX: M79.662 Pain in left lower leg (principal); J45.909 Unspecified asthma, uncomplicated; F17.200 Nicotine dependence, unspecified, uncomplicated

== ENCOUNTER → 2016-12-07 | Outpatient (CLI) | payer OTHER ==
[~2016-12-07] MED LIST changes: -ALBU17IN2 INH; +APIXABAN 5 MG TAB (ELIQUIS) As Ordered; -DEPA250T2 PO; -PRED20TA PO; -no home meds
== END ==
LOC: M RAD 13:00
DX: M79.605 Pain in left leg (principal); Z53.9 Procedure and treatment not carried out, unspecified reason

== ENCOUNTER 2017-02-06 14:39 | Emergency (ER) | payer OTHER ==
[2017-02-06 16:56] LABS: BASO # 0.1 10^3/uL (0.0-0.2); BASO % 0.6 % (0.0-1.0); EOS # 0.7 10^3/uL (0.0-0.50); EOS % 7.5 % (0.0-3.0); IMMATURE GRANULOCYTE # 0.1 10^3/uL (0-0); IMMATURE GRANULOCYTE % 0.5 % (0-0); LYMPH # 2.8 10^3/uL (1.5-6.5); LYMPH % 29.8 % (24.0-44.0); MEAN CORPUSCULAR HEMOGLOBIN 33.5 pg (27.0-33.0); MEAN CORPUSCULAR HGB CONC 35.6 g/dl (32.0-36.5); MEAN CORPUSCULAR VOLUME 93.9 fl (80.0-96.0); MONO # 0.9 10^3/uL (0.0-0.8); MONO % 9.9 % (0.0-5.0); NEUTROPHILS # 4.9 10^3/uL (1.8-7.7); NEUTROPHILS % 51.7 % (36.0-66.0); PLATELET COUNT, AUTOMATED 308 10^3/uL (150-450); RED CELL DISTRIBUTION WIDTH 12.4 % (11.5-14.5); WHITE BLOOD COUNT 9.5 10^3/uL (4.0-10.0)
[2017-02-06 17:00] LABS: INR 1.19
[2017-02-06] MEDS: diphenhydrAMINE INJ 50MG/ML VIAL (J1200) IV (17:00)
[2017-02-06] MEDS: NS 1,000 ML IV (17:00)
[2017-02-06] MEDS: ASPIRIN 81 MG CHEW TABLET PO (17:00)
[2017-02-06] MEDS: METOCLOPRAMIDE INJ 10MG/2ML VIAL (J2765) IV (17:00)
[2017-02-06] MEDS: GI COCKTAIL 50ML BTL(HYOSCYAMINE/MAALOX/LIDOCAINE VISCOUS)(1:3:1) PO (17:00)
[2017-02-06 17:09] LABS: ALBUMIN 3.9 GM/DL (3.2-5.2); ALBUMIN/GLOBULIN RATIO 1.03 (1.00-1.93); ALKALINE PHOSPHATASE 86 U/L (45-117); ALT/SGPT 17 U/L (12-78); ANION GAP 6 MEQ/L (8-16); AST/SGOT 13 U/L (7-37); BILIRUBIN,DIRECT < 0.1 MG/DL (0.0-0.2); BILIRUBIN,TOTAL 0.4 MG/DL (0.2-1.0); BLOOD UREA NITROGEN 12 MG/DL (7-18); CALCIUM LEVEL 9.1 MG/DL (8.5-10.1); CARBON DIOXIDE LEVEL 28 MEQ/L (21-32); CHLORIDE LEVEL 106 MEQ/L (98-107); CREATININE FOR GFR 0.91 MG/DL (0.70-1.30); GLOMERULAR FILTRATION RATE > 60.0 (>60); GLUCOSE, FASTING 84 MG/DL (70-105); POTASSIUM SERUM 4.5 MEQ/L (3.5-5.1); SODIUM LEVEL 140 MEQ/L (136-145); TOTAL PROTEIN 7.7 GM/DL (6.4-8.2)
[2017-02-06] MEDS ORDERED: ISOVUE-370 76% 100ML VIAL (Q9967) As Ordered (17:17)
== END 2017-02-06 18:41 | disposition home or self-care (01) ==
LOC: M ED 14:39
DX: R07.9 Chest pain, unspecified (principal); Z86.711 Personal history of pulmonary embolism; F17.200 Nicotine dependence, unspecified, uncomplicated; Z82.49 Family history of ischemic heart disease and other diseases of the circulatory system; Z79.01 Long term (current) use of anticoagulants
CPT/HCPCS: J1200

== ENCOUNTER 2017-03-27 18:08 | Emergency (ER) | payer OTHER, BC | END 2017-03-27 20:33 | disposition left against medical advice (07) | LOC: M ED 18:08 | DX: Z53.21 Procedure and treatment not carried out due to patient leaving prior to being seen by health care provider (principal) ==

== ENCOUNTER 2018-01-05 18:33 | Emergency (ER) | payer BC, OTHER ==
[2018-01-05 19:43] LABS: BASO # 0.1 10^3/uL (0.0-0.2); BASO % 0.5 % (0.0-1.0); EOS # 0.6 10^3/uL (0.0-0.50); EOS % 5.9 % (0.0-3.0); HEMATOCRIT 48.8 % (42.0-52.0); HEMOGLOBIN 17.1 g/dl (13.5-17.5); IMMATURE GRANULOCYTE % 0.3 % (0-3.0); LYMPH # 2.7 10^3/uL (1.5-4.5); LYMPH % 25.3 % (24.0-44.0); MEAN CORPUSCULAR HEMOGLOBIN 34.2 pg (27.0-33.0); MEAN CORPUSCULAR VOLUME 97.6 fl (80.0-96.0); MONO # 0.8 10^3/uL (0.0-0.8); MONO % 7.2 % (0.0-5.0); NEUTROPHILS # 6.4 10^3/uL (1.8-7.7); NEUTROPHILS % 60.8 % (36.0-66.0); PLATELET COUNT, AUTOMATED 234 10^3/uL (150-450); RED CELL DISTRIBUTION WIDTH 11.9 % (11.5-14.5); WHITE BLOOD COUNT 10.5 10^3/uL (4.0-10.0)
[2018-01-05 19:52] LABS: ANION GAP 5 MEQ/L (8-16); BLOOD UREA NITROGEN 13 MG/DL (7-18); CALCIUM LEVEL 8.8 MG/DL (8.5-10.1); CARBON DIOXIDE LEVEL 31 MEQ/L (21-32); CHLORIDE LEVEL 102 MEQ/L (98-107); CPK CREATINE PHOSPHOKINASE 84 U/L (39-308); CREATININE FOR GFR 1.09 MG/DL (0.70-1.30); GLOMERULAR FILTRATION RATE > 60.0 (>60); GLUCOSE, FASTING 113 MG/DL (70-100); MB/CK RELATIVE INDEX 1.31 (< OR =4); POTASSIUM SERUM 4.3 MEQ/L (3.5-5.1); SODIUM LEVEL 138 MEQ/L (136-145); TROPONIN I < 0.02 NG/ML (< 0.10)
[2018-01-05] MEDS: MORPHINE 4 MG/ML 1ML VIAL/SYRINGE (J2270) IV (19:55)
[2018-01-05] MEDS: ONDANSETRON 4MG/2ML VIAL (J2405) IV (19:57)
[2018-01-05] MEDS ORDERED: ISOVUE-370 76% 100ML VIAL (Q9967) As Ordered (20:11)
[2018-01-05] MEDS: BENZONATATE 100 MG CAP PO (21:44)
[2018-01-05] MEDS: KETOROLAC 30 MG/ML VIAL (J1885) IV (21:45)
== END 2018-01-05 22:14 | disposition home or self-care (01) ==
LOC: M ED 18:33
DX: S29.011A Strain of muscle and tendon of front wall of thorax, initial encounter (principal); X58.XXXA Exposure to other specified factors, initial encounter; Y92.89 Other specified places as the place of occurrence of the external cause; J45.909 Unspecified asthma, uncomplicated; K21.9 Gastro-esophageal reflux disease without esophagitis; Z86.718 Personal history of other venous thrombosis and embolism
CPT/HCPCS: J2270